=== PATIENT | female | born 1970 | race Caucasian/White ===

== ENCOUNTER 2020-03-26 21:39 | Inpatient (IN) ==
[2020-03-26] MEDS ORDERED: ACETAMINOPHEN 500 MG TABLET PO STA (22:13)
[2020-03-26] MEDS ORDERED: SODIUM CHLORIDE 0.9% 1,000 ML IV STA (22:13)
[2020-03-26 22:54] LABS: Basophils % 1.8 % (0.0-0.8); Hematocrit 36.3 VOL% (35.7-47.0); Hemoglobin 12.4 GM/DL (12.0-16.0); Immature Granulocytes % 1.8 %; Immature Granulocytes Absolute 0.02 #; Lymphocytes # 0.1 10*3/uL (1.4-4.0); Lymphocytes % 5.3 % (21.3-54.2); Mean Corpuscular HGB Conc 34.2 GM/DL (32-36); Mean Corpuscular Volume 82.5 FL (87-102); Mean Platelet Volume 9.3 FL (9.6-12.0); Monocytes % 51.3 % (1.7-12.7); Neutrophils % 39.8 % (38.7-73.9); Platelet Count 189 T/CUMM (130-400); Red Cell Distribution Width 12.2 % (9.3-17.3); White Blood Count 1.1 T/CUMM (4-12)
[2020-03-26 23:20] LABS: Bilirubin,Total 1.8 MG/DL (0.2-1.0); Osmolality,Calculated 263.5 MOS/KG (273-304); Potassium 2.7 MMOL/L (3.5-5.1); Total Protein 6.4 G/DL (6.4-8.3)
[2020-03-26] MEDS ORDERED: MEROPENEM 2,000 MG in SODIUM CHLORIDE 0.9% 100 ML IV SCH (23:45)
[2020-03-27] MEDS ORDERED: MEROPENEM 2,000 MG in SODIUM CHLORIDE 0.9% 100 ML IV STA
[2020-03-27] MEDS ORDERED: GLUCAGON 1 MG VIAL IM PRN (00:03)
[2020-03-27] MEDS ORDERED: DEXTROSE 50% 25 GM/50 ML VIAL IV PRN (00:03)
[2020-03-27] MEDS ORDERED: ALBUTEROL/IPRATROPIUM 3 ML NEB RESP TX PRN (00:03)
[2020-03-27] MEDS ORDERED: ACETAMINOPHEN 325 MG TABLET PO PRN (00:03)
[2020-03-27] MEDS ORDERED: PROMETHAZINE 25 MG/1 ML VIAL IV PRN (00:03)
[2020-03-27] MEDS ORDERED: ONDANSETRON 4 MG/2 ML VIAL IV PRN ×2 (00:03→02:35)
[2020-03-27] MEDS ORDERED: SIMETHICONE CHEW 125 MG TABLET PO PRN (00:03)
[2020-03-27 00:47] LABS: Amorphous Crystals,Urine Occasional /HPF (Few); Bacteria,Urine Many /HPF (Few); Bilirubin,Urine Negative (Negative); Blood, Urine Moderate mg/dL (Negative); Glucose,Urine (UA) Negative (Negative); Hyaline Casts,Urine 4 /LPF (0-3); Ketones,Urine 5 mg/dL (Negative); Mucus,Urine Occasional /LPF (Occasional); Nitrite,Urine Negative (Negative); Protein,Urine Negative; Squamous Epithelial Cell,Urine Occasional /HPF (0-10); Urine Appearance Slightly Hazy (Clear); Urine Color Yellow (Yellow); Urine Specific Gravity 1.005 (1.001-1.035); WBC,Urine 5 /HPF (0-6)
[2020-03-27 00:58] LABS: Band Neutrophils 4 % (0-10); Lymphocytes 6 % (20-55); Microcytosis 1+; Platelet Estimate Normal; Segmented Neutrophils 40 % (50-85); Total Cells Counted 100
[2020-03-27 00:59] LABS: Polychromasia Few
[2020-03-27] MEDS: SODIUM CHLOR 0.9% KCL 40 MEQ 40 MEQ/1,000 ML BAG IV SCH ×4 (01:00→23:10)
[2020-03-27] MEDS: ENOXAPARIN 40 MG/0.4 ML SYRINGE SUBCUT SCH ×2 (01:13→23:30)
[2020-03-27] MEDS ORDERED: PROMETHAZINE INJ 25 MG in SODIUM CHLORIDE 0.9% 50 ML IV PRN (02:06)
[2020-03-27] MEDS: ZALEPLON 5 MG CAPSULE PO PRN ×2 (02:40→20:43)
[2020-03-27] MEDS ORDERED: MAGNESIUM SULF RIDER 4 GM in PREMIX 1 EACH IV PRN (03:03)
[2020-03-27] MEDS ORDERED: MAGNESIUM SULF RIDER 2 GM in PREMIX 1 EACH IV PRN (03:03)
[2020-03-27 06:08] LABS: Basophils % 1.8 % (0.0-0.8); Hematocrit 32.8 VOL% (35.7-47.0); Immature Granulocytes % 5.3 %; Immature Granulocytes Absolute 0.06 #; Lymphocytes # 0.1 10*3/uL (1.4-4.0); Lymphocytes % 7.1 % (21.3-54.2); Mean Corpuscular HGB Conc 33.5 GM/DL (32-36); Mean Corpuscular Volume 83.9 FL (87-102); Monocytes % 44.2 % (1.7-12.7); Neutrophils % 41.6 % (38.7-73.9); Platelet Count 176 T/CUMM (130-400); Red Blood Count 3.91 MC/CUMM (3.8-5.5); Red Cell Distribution Width 12.4 % (9.3-17.3); White Blood Count 1.1 T/CUMM (4-12)
[2020-03-27 06:32] LABS: Albumin 1.7 G/DL (3.4-5.0); Bilirubin,Total 1.8 MG/DL (0.2-1.0); Calcium 7.5 MG/DL (8.5-10.1); Total Protein 5.7 G/DL (6.4-8.3)
[2020-03-27] MEDS ORDERED: MEROPENEM 2,000 MG in SODIUM CHLORIDE 0.9% 100 ML IV SCH (08:00)
[2020-03-27 08:53] LABS: Band Neutrophils 2 % (0-10); Eosinophils 13 % (0-10); Lymphocytes 9 % (20-55); Metamyelocytes 15 %; Myelocytes 2 %; Segmented Neutrophils 15 % (50-85)
[2020-03-27 08:54] LABS: Atypical Lymphocytes Few; Hypochromasia Slight; Platelet Estimate Normal; Total Cells Counted 100
[2020-03-27] MEDS ORDERED: PROMETHAZINE 25 MG SUPP RECTAL PRN (09:23)
[2020-03-27] MEDS: FILGRASTIM-SNDZ 480 MCG/0.8 ML SYRINGE SUBCUT SCH (10:48)
[2020-03-27] MEDS: MEROPENEM 500 MG in SODIUM CHLORIDE 0.9% 100 ML IV SCH ×3 (10:48→20:23)
[2020-03-27] MEDS: LOPERAMIDE 2 MG CAPSULE PO PRN ×2 (16:05→20:43)
[2020-03-28] MEDS: MEROPENEM 500 MG in SODIUM CHLORIDE 0.9% 100 ML IV SCH ×4 (03:13→21:14)
[2020-03-28 05:29] LABS: Basophils # 0.1 10*3/uL (0.0-0.2); Basophils % 1.5 % (0.0-0.8); Eosinophils % 0.2 % (0.00-10.9); Hematocrit 32.9 VOL% (35.7-47.0); Hemoglobin 10.5 GM/DL (12.0-16.0); Immature Granulocytes % 7.1 %; Immature Granulocytes Absolute 0.43 #; Lymphocytes # 0.2 10*3/uL (1.4-4.0); Lymphocytes % 3.5 % (21.3-54.2); Mean Corpuscular HGB Conc 31.9 GM/DL (32-36); Mean Corpuscular Volume 85.9 FL (87-102); Mean Platelet Volume 9.7 FL (9.6-12.0); Monocytes % 14.9 % (1.7-12.7); Neutrophils % 72.8 % (38.7-73.9); Platelet Count 277 T/CUMM (130-400); Red Blood Count 3.83 MC/CUMM (3.8-5.5); Red Cell Distribution Width 12.7 % (9.3-17.3)
[2020-03-28 05:57] LABS: Band Neutrophils 5 % (0-10); Hypochromasia 1+; Lymphocytes 3 % (20-55); Microcytosis 1+; Platelet Estimate Adequate; Segmented Neutrophils 78 % (50-85); Total Cells Counted 100
[2020-03-28 06:10] LABS: Calcium 7.6 MG/DL (8.5-10.1); Osmolality,Calculated 268.8 MOS/KG (273-304); Potassium 3.4 MMOL/L (3.5-5.1)
[2020-03-28 06:14] LABS: Albumin 1.7 G/DL (3.4-5.0); Bilirubin,Total 1.3 MG/DL (0.2-1.0); Calcium 7.1 MG/DL (8.5-10.1); Osmolality,Calculated 275.4 MOS/KG (273-304); Potassium 3.7 MMOL/L (3.5-5.1); Total Protein 4.7 G/DL (6.4-8.3)
[2020-03-28] MEDS: SODIUM CHLOR 0.9% KCL 40 MEQ 40 MEQ/1,000 ML BAG IV SCH ×2 (07:01→16:24)
[2020-03-28] MEDS: LOPERAMIDE 2 MG CAPSULE PO PRN (10:38)
[2020-03-28] MEDS: FILGRASTIM-SNDZ 480 MCG/0.8 ML SYRINGE SUBCUT SCH (10:38)
[2020-03-28] MEDS ORDERED: DIPHENOXYLATE/ATROPINE 2.5-0.025 MG TABLET PO PRN (17:55)
[2020-03-29] MEDS: ENOXAPARIN 40 MG/0.4 ML SYRINGE SUBCUT SCH (00:22)
[2020-03-29 04:14] LABS: Basophils # 0.1 10*3/uL (0.0-0.2); Basophils % 0.4 % (0.0-0.8); Hematocrit 33.6 VOL% (35.7-47.0); Hemoglobin 11.2 GM/DL (12.0-16.0); Immature Granulocytes % 20.7 %; Immature Granulocytes Absolute 5.56 #; Lymphocytes # 0.5 10*3/uL (1.4-4.0); Lymphocytes % 1.7 % (21.3-54.2); Mean Corpuscular HGB Conc 33.3 GM/DL (32-36); Mean Corpuscular Volume 84.4 FL (87-102); Mean Platelet Volume 9.5 FL (9.6-12.0); Monocytes % 7.2 % (1.7-12.7); NRBC # 0.03 10*3/uL; Platelet Count 353 T/CUMM (130-400); Red Blood Count 3.98 MC/CUMM (3.8-5.5); Red Cell Distribution Width 13.1 % (9.3-17.3); White Blood Count 26.9 T/CUMM (4-12)
[2020-03-29 04:47] LABS: Calcium 7.3 MG/DL (8.5-10.1); Osmolality,Calculated 273.5 MOS/KG (273-304)
[2020-03-29 04:48] LABS: Band Neutrophils 7 % (0-10); Lymphocytes 3 % (20-55); Myelocytes 1 %; Segmented Neutrophils 85 % (50-85); Total Cells Counted 100
[2020-03-29 04:49] LABS: Hypochromasia 1+; Microcytosis 1+; Platelet Estimate Adequate
[2020-03-29] MEDS: SODIUM CHLOR 0.9% KCL 40 MEQ 40 MEQ/1,000 ML BAG IV SCH ×2 (05:28→11:36)
[2020-03-29] MEDS: MEROPENEM 500 MG in SODIUM CHLORIDE 0.9% 100 ML IV SCH ×2 (05:29→11:39)
[2020-03-29 11:50] VITALS: BP 110/57
== END 2020-03-29 15:00 | disposition home or self-care (01) | DRG 809 ==
LOC: N.ED 21:39 → N.EDINP 23:57 → SUATTDRO 23:57 → N.EDINP 03-27 01:48 → N.3E 03-27 01:56 → N.4E 03-28 13:32
PROVIDERS: ADMIT Internal Medicine; ATTEND Internal Medicine

== ENCOUNTER 2020-04-14 10:40 | Inpatient (IN) ==
[2020-04-14] MEDS ORDERED: MEROPENEM 500 MG in SODIUM CHLORIDE 0.9% 100 ML IV STA (11:08)
[2020-04-14] MEDS ORDERED: SODIUM CHLORIDE 0.9% 1,000 ML IV STA (11:08)
[2020-04-14 11:32] LABS: Basophils % 4.5 % (0.0-0.8); Hematocrit 36.2 VOL% (35.7-47.0); Hemoglobin 12.1 GM/DL (12.0-16.0); Immature Granulocytes % 1.5 %; Immature Granulocytes Absolute 0.01 #; Lymphocytes # 0.1 10*3/uL (1.4-4.0); Lymphocytes % 15.2 % (21.3-54.2); Mean Corpuscular HGB Conc 33.4 GM/DL (32-36); Mean Corpuscular Volume 83.6 FL (87-102); Mean Platelet Volume 10.4 FL (9.6-12.0); Monocytes % 31.8 % (1.7-12.7); Platelet Count 107 T/CUMM (130-400); Red Blood Count 4.33 MC/CUMM (3.8-5.5); Red Cell Distribution Width 13.1 % (9.3-17.3)
[2020-04-14 11:36] LABS: White Blood Count 0.7 T/CUMM (4-12)
[2020-04-14 11:50] LABS: Alanine Aminotransferase 45 U/L (13-56); Albumin 2.3 G/DL (3.4-5.0); Alkaline Phosphatase 117 U/L (45-117); Aspartate Amino Transferase 41 U/L (0-37); Blood Urea Nitrogen 9 MG/DL (7-18); Calcium 8.1 MG/DL (8.5-10.1); Carbon Dioxide 25 MMOL/L (21-32); Estimated Glom Filtration Rate 131 ML/MIN; Glucose 126 MG/DL (74-106); Osmolality,Calculated 264.5 MOS/KG (273-304); Potassium 3.7 MMOL/L (3.5-5.1); Sodium 132 MMOL/L (136-145); Total Protein 6.3 G/DL (6.4-8.3)
[2020-04-14 11:51] LABS: Hypochromasia 1+; Lymphocytes 20 % (20-55); Microcytosis 1+; Platelet Estimate Decreased; Segmented Neutrophils 30 % (50-85); Total Cells Counted 100
[2020-04-14] MEDS ORDERED: DEXTROSE 50% 25 GM/50 ML VIAL IV PRN (13:45)
[2020-04-14] MEDS ORDERED: GLUCAGON 1 MG VIAL IM PRN (13:45)
[2020-04-14] MEDS ORDERED: ONDANSETRON 4 MG/2 ML VIAL IV PRN (13:45)
[2020-04-14] MEDS ORDERED: BUPIVACAINE MPF 0.25% 30 ML VIAL ONE (13:53)
[2020-04-14] MEDS ORDERED: LIDOCAINE 1%/EPI INJ 20 ML VIAL ONE (13:53)
[2020-04-14] MEDS ORDERED: fentaNYL 100 MCG/2 ML VIAL ONE (14:21)
[2020-04-14] MEDS ORDERED: MIDAZOLAM 2 MG/2 ML VIAL ONE (14:22)
[2020-04-14] MEDS ORDERED: ONDANSETRON 4 MG/2 ML VIAL ONE ×3 (14:23)
[2020-04-14] MEDS ORDERED: LIDOCAINE 2% 5 ML VIAL ONE (14:24)
[2020-04-14] MEDS ORDERED: propofoL 200 MG/20 ML VIAL IV ONE (14:25)
[2020-04-14] MEDS ORDERED: SUCCINYLCHOLINE 200 MG/10 ML VIAL ONE (14:25)
[2020-04-14] MEDS ORDERED: LACTATED RINGERS 1,000 ML IV ONE ×2 (14:30→15:11)
[2020-04-14] MEDS ORDERED: DEXAMETHASONE 4 MG/1 ML VIAL ONE ×2 (14:55)
[2020-04-14] MEDS ORDERED: CEFEPIME 1,000 MG in SODIUM CHLORIDE 0.9% 100 ML IV ONE (15:00)
[2020-04-14] MEDS ORDERED: VANCOMYCIN INJ 1,750 MG in SODIUM CHLORIDE 0.9% 500 ML IV ONE (15:00)
[2020-04-14] MEDS ORDERED: SEVOFLURANE 1 UNIT/15 MINUTE INH ONE (15:10)
[2020-04-14] MEDS ORDERED: MORPHINE 4 MG/1 ML VIAL IV PRN (16:51)
[2020-04-14] MEDS ORDERED: FILGRASTIM-SNDZ 300 MCG/0.5 ML SYRINGE SUBCUT SCH (17:08)
[2020-04-14] MEDS: SODIUM CHLORIDE 0.9% IV SCH (17:18)
[2020-04-14] MEDS: SODIUM CHLORIDE 0.45% 1,000 ML IV SCH (17:18)
[2020-04-14] MEDS: TOBRAMYCIN IV SCH (17:18)
[2020-04-14] MEDS: FILGRASTIM-SNDZ 300 MCG/0.5 ML SYRINGE SUBCUT SCH (17:19)
[2020-04-14] MEDS ORDERED: MEROPENEM 500 MG in SODIUM CHLORIDE 0.9% 100 ML IV SCH (18:00)
[2020-04-14] MEDS: ZALEPLON 5 MG CAPSULE PO PRN (21:06)
[2020-04-14] MEDS: CEFEPIME 1,000 MG in SODIUM CHLORIDE 0.9% 100 ML IV SCH (21:07)
[2020-04-15] MEDS: SODIUM CHLORIDE 0.45% 1,000 ML IV SCH ×5 (02:25→23:23)
[2020-04-15] MEDS: CEFEPIME 1,000 MG in SODIUM CHLORIDE 0.9% 100 ML IV SCH ×4 (02:26→21:18)
[2020-04-15 05:55] LABS: Basophils % 1.7 % (0.0-0.8); Hemoglobin 10.3 GM/DL (12.0-16.0); Immature Granulocytes % 3.5 %; Immature Granulocytes Absolute 0.04 #; Lymphocytes # 0.1 10*3/uL (1.4-4.0); Lymphocytes % 7.8 % (21.3-54.2); Mean Corpuscular HGB Conc 33.2 GM/DL (32-36); Mean Corpuscular Volume 83.8 FL (87-102); Mean Platelet Volume 10.9 FL (9.6-12.0); Monocytes % 31.3 % (1.7-12.7); Neutrophils % 55.7 % (38.7-73.9); Platelet Count 102 T/CUMM (130-400); Red Cell Distribution Width 13.2 % (9.3-17.3); White Blood Count 1.2 T/CUMM (4-12)
[2020-04-15 06:20] LABS: Band Neutrophils 4 % (0-10); Hypochromasia 1+; Lymphocytes 13 % (20-55); Platelet Estimate Decreased; Segmented Neutrophils 54 % (50-85); Total Cells Counted 100
[2020-04-15 06:21] LABS: Microcytosis 1+
[2020-04-15 06:23] LABS: Calcium 7.9 MG/DL (8.5-10.1); Potassium 3.7 MMOL/L (3.5-5.1)
[2020-04-15] MEDS ORDERED: PANTOPRAZOLE 40 MG TABLET PO SCH (09:00)
[2020-04-15] MEDS: OMEPRAZOLE ODT 20 MG TABLET PO SCH (09:00)
[2020-04-15] MEDS: FILGRASTIM-SNDZ 300 MCG/0.5 ML SYRINGE SUBCUT SCH (09:02)
[2020-04-15] MEDS: VANCOMYCIN INJ 1,750 MG in SODIUM CHLORIDE 0.9% 500 ML IV SCH (10:40)
[2020-04-15] MEDS ORDERED: predniSONE 20 MG TABLET PO ONE (10:42)
[2020-04-15] MEDS ORDERED: FILGRASTIM-SNDZ 300 MCG/0.5 ML SYRINGE SUBCUT SCH (16:53)
[2020-04-15] MEDS: SODIUM CHLORIDE 0.9% IV SCH (18:11)
[2020-04-15] MEDS: TOBRAMYCIN IV SCH (18:11)
[2020-04-15] MEDS: ZALEPLON 5 MG CAPSULE PO PRN (20:13)
[2020-04-16] MEDS: CEFEPIME 1,000 MG in SODIUM CHLORIDE 0.9% 100 ML IV SCH ×2 (03:01→08:17)
[2020-04-16] MEDS: VANCOMYCIN INJ 1,750 MG in SODIUM CHLORIDE 0.9% 500 ML IV SCH (03:42)
[2020-04-16 06:15] LABS: Hematocrit 27.4 VOL% (35.7-47.0); Immature Granulocytes % 2.5 %; Lymphocytes # 0.2 10*3/uL (1.4-4.0); Lymphocytes % 4.5 % (21.3-54.2); Mean Corpuscular HGB Conc 32.8 GM/DL (32-36); Mean Corpuscular Volume 85.6 FL (87-102); Mean Platelet Volume 10.5 FL (9.6-12.0); Monocytes % 17.9 % (1.7-12.7); Neutrophils % 74.1 % (38.7-73.9); Platelet Count 107 T/CUMM (130-400); Red Cell Distribution Width 13.2 % (9.3-17.3)
[2020-04-16 06:26] LABS: Calcium 7.7 MG/DL (8.5-10.1); Osmolality,Calculated 279.3 MOS/KG (273-304); Potassium 3.5 MMOL/L (3.5-5.1)
[2020-04-16 06:54] LABS: Band Neutrophils 2 % (0-10); Hypochromasia Slight; Lymphocytes 15 % (20-55); Metamyelocytes 1 %; Myelocytes 1 %; Platelet Estimate Adequate; Segmented Neutrophils 66 % (50-85); Total Cells Counted 100
[2020-04-16] MEDS: OMEPRAZOLE ODT 20 MG TABLET PO SCH (08:16)
[2020-04-16] MEDS: FILGRASTIM-SNDZ 300 MCG/0.5 ML SYRINGE SUBCUT SCH (08:18)
[2020-04-16] MEDS ORDERED: predniSONE 20 MG TABLET PO SCH (09:00)
[2020-04-16 12:01] VITALS: BP 104/78
== END 2020-04-16 11:45 | disposition home health service (06) | DRG 908 ==
LOC: N.ED 10:40 → SUATTDRO 13:45 → N.4E 13:45
PROVIDERS: ADMIT Internal Medicine Nephrology; ATTEND Internal Medicine

== ENCOUNTER 2020-04-20 20:28 | Observation (INO) ==
[2020-04-20] MEDS ORDERED: ONDANSETRON 4 MG/2 ML VIAL IV STA (21:14)
[2020-04-20] MEDS ORDERED: MORPHINE 4 MG/1 ML VIAL IV STA (21:14)
[2020-04-20] MEDS ORDERED: SODIUM CHLORIDE 0.9% 1,000 ML IV STA (21:14)
[2020-04-20 21:29] LABS: Basophils % 0.1 % (0.0-0.8); Hematocrit 36.1 VOL% (35.7-47.0); Hemoglobin 12.3 GM/DL (12.0-16.0); Immature Granulocytes % 27.7 %; Immature Granulocytes Absolute 3.71 #; Lymphocytes # 0.2 10*3/uL (1.4-4.0); Lymphocytes % 1.2 % (21.3-54.2); Mean Corpuscular HGB Conc 34.1 GM/DL (32-36); Mean Corpuscular Volume 83.6 FL (87-102); Monocytes % 8.5 % (1.7-12.7); NRBC # 0.05 10*3/uL; Neutrophils % 62.5 % (38.7-73.9); Platelet Count 164 T/CUMM (130-400); Red Blood Count 4.32 MC/CUMM (3.8-5.5); Red Cell Distribution Width 15.9 % (9.3-17.3); White Blood Count 13.4 T/CUMM (4-12)
[2020-04-20 21:42] LABS: Albumin 2.6 G/DL (3.4-5.0); Bilirubin,Total 0.7 MG/DL (0.2-1.0); Calcium 8.2 MG/DL (8.5-10.1); Osmolality,Calculated 276.4 MOS/KG (273-304); Potassium 2.9 MMOL/L (3.5-5.1); Total Protein 6.3 G/DL (6.4-8.3)
[2020-04-20] MEDS ORDERED: POTASSIUM CHLORIDE 20 MEQ/15 ML UDCUP PO ONE (21:50)
[2020-04-20 21:56] LABS: Bilirubin,Urine Negative (Negative); Blood, Urine Negative (Negative); Glucose,Urine (UA) Negative (Negative); Ketones,Urine Negative (Negative); Mucus,Urine Occasional /LPF (Occasional); Nitrite,Urine Negative (Negative); Protein,Urine Negative; RBC,Urine 1 /HPF (0-4); Squamous Epithelial Cell,Urine Occasional /HPF (0-10); Urine Appearance CLEAR (Clear); Urine Color Yellow (Yellow); Urine Specific Gravity 1.012 (1.001-1.035); Urine Urobilinogen < 2.0 EU/DL (0.2-1.0); WBC,Urine 8 /HPF (0-6)
[2020-04-20 22:14] LABS: Band Neutrophils 7 % (0-10); Lymphocytes 2 % (20-55); Metamyelocytes 9 %; Myelocytes 4 %; Segmented Neutrophils 72 % (50-85); Total Cells Counted 100
[2020-04-20 22:16] LABS: Hypochromasia 1+; Platelet Estimate Normal; Polychromasia Few
[2020-04-20] MEDS ORDERED: HYDROmorphone 2 MG/1 ML VIAL IV STA (23:06)
[2020-04-20] MEDS ORDERED: HYDROmorphone 2 MG/1 ML VIAL ONE (23:07)
[2020-04-20] MEDS ORDERED: DEXTROSE 50% 25 GM/50 ML VIAL IV PRN (23:42)
[2020-04-20] MEDS ORDERED: GLUCAGON 1 MG VIAL IM PRN (23:42)
[2020-04-20] MEDS ORDERED: SCOPOLAMINE 1.5 MG PATCH TRANSDERM PRN (23:50)
[2020-04-20] MEDS ORDERED: PROMETHAZINE 25 MG SUPP RECTAL PRN (23:50)
[2020-04-20] MEDS ORDERED: ACETAMINOPHEN 325 MG TABLET PO PRN (23:50)
[2020-04-20] MEDS ORDERED: DIPHENOXYLATE/ATROPINE 2.5-0.025 MG TABLET PO PRN (23:50)
[2020-04-21] MEDS ORDERED: MEROPENEM 500 MG in SODIUM CHLORIDE 0.9% 100 ML IV SCH
[2020-04-21] MEDS ORDERED: VANCOMYCIN INJ 2,000 MG in SODIUM CHLORIDE 0.9% 500 ML IV ONE (01:00)
[2020-04-21] MEDS: MEROPENEM 2,000 MG in SODIUM CHLORIDE 0.9% 100 ML IV SCH ×2 (02:22→11:30)
[2020-04-21] MEDS: MORPHINE 4 MG/1 ML VIAL IV PRN ×3 (06:20→21:01)
[2020-04-21 08:32] LABS: Basophils % 0.1 % (0.0-0.8); Hematocrit 34.4 VOL% (35.7-47.0); Hemoglobin 11.2 GM/DL (12.0-16.0); Immature Granulocytes Absolute 2.97 #; Lymphocytes # 0.1 10*3/uL (1.4-4.0); Lymphocytes % 1.1 % (21.3-54.2); Mean Corpuscular HGB Conc 32.6 GM/DL (32-36); Mean Corpuscular Volume 85.8 FL (87-102); Mean Platelet Volume 9.4 FL (9.6-12.0); Monocytes % 9.8 % (1.7-12.7); NRBC # 0.04 10*3/uL; Platelet Count 152 T/CUMM (130-400); Red Blood Count 4.01 MC/CUMM (3.8-5.5); Red Cell Distribution Width 16.2 % (9.3-17.3); White Blood Count 12.9 T/CUMM (4-12)
[2020-04-21 08:48] LABS: Calcium 8.1 MG/DL (8.5-10.1); Osmolality,Calculated 271.7 MOS/KG (273-304); Potassium 3.4 MMOL/L (3.5-5.1)
[2020-04-21 09:01] LABS: Band Neutrophils 5 % (0-10); Hypochromasia 1+; Lymphocytes 2 % (20-55); Microcytosis 1+; Nucleated Red Blood Cells 1 (0-5); Platelet Estimate Adequate; Segmented Neutrophils 83 % (50-85); Total Cells Counted 100
[2020-04-21] MEDS: ENOXAPARIN 40 MG/0.4 ML SYRINGE SUBCUT SCH (11:38)
[2020-04-21] MEDS: predniSONE 20 MG TABLET PO SCH (11:39)
[2020-04-21] MEDS ORDERED: FUROSEMIDE 20 MG/2 ML VIAL IV ONE (11:40)
[2020-04-21] MEDS: ONDANSETRON 4 MG/2 ML VIAL IV PRN ×3 (11:50→21:01)
[2020-04-21] MEDS: MEROPENEM 500 MG in SODIUM CHLORIDE 0.9% 100 ML IV SCH ×2 (12:10→17:38)
[2020-04-21] MEDS: VANCOMYCIN INJ 1,500 MG in SODIUM CHLORIDE 0.9% 500 ML IV SCH (15:21)
[2020-04-22] MEDS: MEROPENEM 500 MG in SODIUM CHLORIDE 0.9% 100 ML IV SCH ×2 (00:45→05:26)
[2020-04-22] MEDS: VANCOMYCIN INJ 1,500 MG in SODIUM CHLORIDE 0.9% 500 ML IV SCH (01:22)
[2020-04-22] MEDS: ONDANSETRON 4 MG/2 ML VIAL IV PRN ×2 (05:14→10:21)
[2020-04-22] MEDS: MORPHINE 4 MG/1 ML VIAL IV PRN ×2 (05:15→10:24)
[2020-04-22] MEDS: predniSONE 20 MG TABLET PO SCH (09:26)
[2020-04-22] MEDS: ENOXAPARIN 40 MG/0.4 ML SYRINGE SUBCUT SCH (09:28)
[2020-04-22] MEDS ORDERED: DOCUSATE SODIUM 100 MG CAPSULE PO PRN (09:40)
[2020-04-22 17:01] VITALS: BP 110/53
== END 2020-04-22 13:40 | disposition home or self-care (01) ==
LOC: N.EDINP 20:28 → N.ED 20:28 → N.4E 04-21 00:27
PROVIDERS: ADMIT Internal Medicine; ATTEND Internal Medicine

== ENCOUNTER 2020-04-26 16:40 | Inpatient (IN) ==
[2020-04-26] MEDS ORDERED: SODIUM CHLORIDE 0.9% 1,000 ML IV STA (17:20)
[2020-04-26 18:29] LABS: Basophils % 0.2 % (0.0-0.8); Hematocrit 38.7 VOL% (35.7-47.0); Hemoglobin 12.7 GM/DL (12.0-16.0); Immature Granulocytes % 2.1 %; Immature Granulocytes Absolute 0.27 #; Lymphocytes # 0.1 10*3/uL (1.4-4.0); Lymphocytes % 0.8 % (21.3-54.2); Mean Corpuscular HGB Conc 32.8 GM/DL (32-36); Mean Corpuscular Volume 85.8 FL (87-102); Mean Platelet Volume 11.3 FL (9.6-12.0); Monocytes % 3.4 % (1.7-12.7); NRBC # 0.02 10*3/uL; Neutrophils % 93.5 % (38.7-73.9); Platelet Count 135 T/CUMM (130-400); Red Blood Count 4.51 MC/CUMM (3.8-5.5); Red Cell Distribution Width 17.7 % (9.3-17.3); White Blood Count 13.1 T/CUMM (4-12)
[2020-04-26 18:30] LABS: Bacteria,Urine Occasional /HPF (Few); Bilirubin,Urine Negative (Negative); Blood, Urine Negative (Negative); Glucose,Urine (UA) Negative (Negative); Ketones,Urine 5 mg/dL (Negative); Nitrite,Urine Negative (Negative); Protein,Urine Negative; RBC,Urine 1 /HPF (0-4); Squamous Epithelial Cell,Urine Occasional /HPF (0-10); Urine Appearance CLEAR (Clear); Urine Color Straw (Yellow); Urine Specific Gravity 1.002 (1.001-1.035); Urine Urobilinogen < 2.0 EU/DL (0.2-1.0); WBC,Urine <1 /HPF (0-6)
[2020-04-26 18:47] LABS: Albumin 3.1 G/DL (3.4-5.0); Bilirubin,Total 1.6 MG/DL (0.2-1.0); Calcium 9.2 MG/DL (8.5-10.1); Osmolality,Calculated 269.1 MOS/KG (273-304); Potassium 4.4 MMOL/L (3.5-5.1); Total Protein 6.9 G/DL (6.4-8.3)
[2020-04-26 19:49] LABS: Band Neutrophils 1 % (0-10); Hypochromasia 1+; Nucleated Red Blood Cells 1 (0-5); Platelet Estimate Normal; Polychromasia 1+; Segmented Neutrophils 98 % (50-85); Total Cells Counted 100
[2020-04-26] MEDS ORDERED: BISACODYL 10 MG SUPP RECTAL STA (21:32)
[2020-04-26] MEDS: SODIUM CHLORIDE 0.9% 1,000 ML IV SCH (22:32)
[2020-04-27] MEDS: SODIUM CHLORIDE 0.9% 1,000 ML IV SCH ×2 (06:32→18:19)
[2020-04-27 08:40] LABS: Albumin 2.7 G/DL (3.4-5.0); Bilirubin,Total 1.1 MG/DL (0.2-1.0); Calcium 8.6 MG/DL (8.5-10.1); Osmolality,Calculated 271.8 MOS/KG (273-304); Potassium 3.7 MMOL/L (3.5-5.1)
[2020-04-27] MEDS ORDERED: ENOXAPARIN 40 MG/0.4 ML SYRINGE SUBCUT SCH (09:00)
[2020-04-27] MEDS ORDERED: PANTOPRAZOLE 40 MG VIAL IV SCH (09:00)
[2020-04-27] MEDS: HYDROmorphone 2 MG/1 ML VIAL IV PRN ×2 (09:14→19:25)
[2020-04-27] MEDS: LORazepam 2 MG/1 ML VIAL IV PRN ×3 (10:29→22:06)
[2020-04-27] MEDS ORDERED: LACTULOSE 20 GM/30 ML UDCUP PO PRN (13:03)
[2020-04-27] MEDS ORDERED: POLYVINYL ALCOHOL 1.4% OPH SOLN 15 ML BOTTLE LEFT EYE PRN (13:09)
[2020-04-27] MEDS ORDERED: predniSONE 20 MG TABLET PO SCH (15:30)
[2020-04-27] MEDS: methylPREDNISolone SOD SUC 125 MG/2 ML VIAL IV SCH (15:59)
[2020-04-27] MEDS: PROMETHAZINE INJ 12.5 MG in SODIUM CHLORIDE 0.9% 50 ML IV PRN (20:28)
[2020-04-27] MEDS: MINERAL OIL/PETROLATUM OPH OINT 3.5 GM TUBE LEFT EYE SCH (20:31)
[2020-04-28] MEDS: HYDROmorphone 2 MG/1 ML VIAL IV PRN ×4 (02:06→19:44)
[2020-04-28] MEDS: SODIUM CHLORIDE 0.9% 1,000 ML IV SCH ×4 (02:08→20:00)
[2020-04-28] MEDS: PANTOPRAZOLE 40 MG VIAL IV SCH ×3 (03:02→20:18)
[2020-04-28] MEDS: methylPREDNISolone SOD SUC 125 MG/2 ML VIAL IV SCH ×2 (03:02→15:27)
[2020-04-28] MEDS: PROMETHAZINE INJ 12.5 MG in SODIUM CHLORIDE 0.9% 50 ML IV PRN (05:26)
[2020-04-28] MEDS: LORazepam 2 MG/1 ML VIAL IV PRN (05:38)
[2020-04-28 05:54] LABS: Basophils % 0.1 % (0.0-0.8); Hematocrit 32.4 VOL% (35.7-47.0); Immature Granulocytes % 2.3 %; Immature Granulocytes Absolute 0.21 #; Lymphocytes # 0.1 10*3/uL (1.4-4.0); Mean Corpuscular Volume 87.8 FL (87-102); Mean Platelet Volume 9.7 FL (9.6-12.0); Monocytes % 6.8 % (1.7-12.7); Neutrophils % 89.8 % (38.7-73.9); Platelet Count 129 T/CUMM (130-400); Red Blood Count 3.69 MC/CUMM (3.8-5.5); Red Cell Distribution Width 17.3 % (9.3-17.3); White Blood Count 9.3 T/CUMM (4-12)
[2020-04-28 06:07] LABS: Hemoglobin 10.7 GM/DL (12.0-16.0)
[2020-04-28 06:10] LABS: Albumin 2.6 G/DL (3.4-5.0); Bilirubin,Total 1.4 MG/DL (0.2-1.0); Calcium 8.1 MG/DL (8.5-10.1); Osmolality,Calculated 275.5 MOS/KG (273-304); Potassium 4.2 MMOL/L (3.5-5.1); Total Protein 5.9 G/DL (6.4-8.9)
[2020-04-28 06:50] LABS: Anisocytosis 1+; Band Neutrophils 4 % (0-10); Lymphocytes 2 % (20-55); Platelet Estimate Adequate; Segmented Neutrophils 90 % (50-85); Tear Drop Cells Few; Total Cells Counted 100
[2020-04-28] MEDS ORDERED: DEXTROSE 50% 25 GM/50 ML VIAL IV PRN (09:08)
[2020-04-28] MEDS ORDERED: GLUCAGON 1 MG VIAL IM PRN (09:08)
[2020-04-28 09:49] LABS: INR 1.1; PT Patient Result 11.4 SECS (9.8-11.9)
[2020-04-28] MEDS: ONDANSETRON 4 MG/2 ML VIAL IV PRN (19:46)
[2020-04-28] MEDS: MINERAL OIL/PETROLATUM OPH OINT 3.5 GM TUBE LEFT EYE SCH (20:18)
[2020-04-28] MEDS ORDERED: ALBUTEROL/IPRATROPIUM 3 ML NEB RESP TX PRN (21:04)
[2020-04-28] MEDS ORDERED: ALBUTEROL/IPRATROPIUM 3 ML NEB RESP TX STA (21:04)
[2020-04-28] MEDS ORDERED: ZALEPLON 5 MG CAPSULE PO PRN (21:45)
[2020-04-29] MEDS: methylPREDNISolone SOD SUC 125 MG/2 ML VIAL IV SCH ×2 (02:59→16:07)
[2020-04-29] MEDS: HYDROmorphone 2 MG/1 ML VIAL IV PRN ×4 (03:00→22:05)
[2020-04-29] MEDS ORDERED: guaiFENesin/DM ER 600-30 MG TABLET PO PRN (03:16)
[2020-04-29] MEDS: ONDANSETRON 4 MG/2 ML VIAL IV PRN ×2 (04:28→12:17)
[2020-04-29] MEDS: SODIUM CHLORIDE 0.9% 1,000 ML IV SCH ×3 (04:31→19:20)
[2020-04-29] MEDS ORDERED: guaiFENesin 200 MG/10 ML UDCUP PO PRN (04:43)
[2020-04-29] MEDS ORDERED: LORazepam 2 MG/1 ML VIAL IV ONE (05:18)
[2020-04-29 05:59] LABS: Potassium 3.2 MMOL/L (3.5-5.1)
[2020-04-29] MEDS: PANTOPRAZOLE 40 MG VIAL IV SCH ×2 (09:03→21:09)
[2020-04-29] MEDS: LORazepam 2 MG/1 ML VIAL IV PRN ×2 (12:18→22:08)
[2020-04-29] MEDS: LEVALBUTEROL 1.25 MG/3 ML NEB RESP TX SCH ×2 (14:16→19:38)
[2020-04-29 15:00] LABS: Glucose,CSF 34 MG/DL (40-70)
[2020-04-29 15:02] LABS: Lymphocytes,CSF 96 %; Monocytes,CSF 4 %; White Blood Cell,CSF 565 C/CUMM
[2020-04-29 15:03] LABS: Appearance,CSF Clear; Red Blood Cell,CSF 55 C/CUMM
[2020-04-29] MEDS: DORNASE ALFA 2.5 MG/2.5 ML VIAL RESP TX SCH (19:38)
[2020-04-29] MEDS: MINERAL OIL/PETROLATUM OPH OINT 3.5 GM TUBE LEFT EYE SCH (21:11)
[2020-04-30] MEDS: HYDROmorphone 2 MG/1 ML VIAL IV PRN ×4 (02:30→20:31)
[2020-04-30] MEDS: methylPREDNISolone SOD SUC 125 MG/2 ML VIAL IV SCH ×2 (02:37→16:12)
[2020-04-30] MEDS: LEVALBUTEROL 1.25 MG/3 ML NEB RESP TX SCH ×3 (07:42→19:14)
[2020-04-30] MEDS: DORNASE ALFA 2.5 MG/2.5 ML VIAL RESP TX SCH ×2 (07:49→19:21)
[2020-04-30] MEDS: PANTOPRAZOLE 40 MG VIAL IV SCH ×2 (09:24→20:36)
[2020-04-30] MEDS: LORazepam 2 MG/1 ML VIAL IV PRN ×2 (09:24→16:13)
[2020-04-30] MEDS: SODIUM CHLORIDE 0.9% 1,000 ML IV SCH (14:03)
[2020-04-30] MEDS: MINERAL OIL/PETROLATUM OPH OINT 3.5 GM TUBE LEFT EYE SCH (20:35)
[2020-05-01] MEDS: HYDROmorphone 2 MG/1 ML VIAL IV PRN ×5 (00:17→18:10)
[2020-05-01] MEDS: LORazepam 2 MG/1 ML VIAL IV PRN ×3 (00:21→18:10)
[2020-05-01] MEDS: methylPREDNISolone SOD SUC 125 MG/2 ML VIAL IV SCH ×2 (04:05→17:25)
[2020-05-01] MEDS: LEVALBUTEROL 1.25 MG/3 ML NEB RESP TX SCH ×2 (07:17→23:30)
[2020-05-01] MEDS: DORNASE ALFA 2.5 MG/2.5 ML VIAL RESP TX SCH (07:17)
[2020-05-01] MEDS: PANTOPRAZOLE 40 MG VIAL IV SCH ×2 (08:51→20:27)
[2020-05-01] MEDS: SODIUM CHLORIDE 0.9% 1,000 ML IV SCH (09:02)
[2020-05-01 10:25] LABS: Hematocrit 31.2 VOL% (35.7-47.0); Hemoglobin 10.2 GM/DL (12.0-16.0); Immature Granulocytes % 0.7 %; Immature Granulocytes Absolute 0.03 #; Lymphocytes # 0.1 10*3/uL (1.4-4.0); Lymphocytes % 1.1 % (21.3-54.2); Mean Corpuscular HGB Conc 32.7 GM/DL (32-36); Mean Corpuscular Volume 88.1 FL (87-102); Mean Platelet Volume 9.4 FL (9.6-12.0); Monocytes % 9.4 % (1.7-12.7); Neutrophils % 88.8 % (38.7-73.9); Platelet Count 117 T/CUMM (130-400); Red Blood Count 3.54 MC/CUMM (3.8-5.5); Red Cell Distribution Width 18.4 % (9.3-17.3); White Blood Count 4.5 T/CUMM (4-12)
[2020-05-01 10:41] LABS: Albumin 2.1 G/DL (3.4-5.0); Bilirubin,Total 1.2 MG/DL (0.2-1.0); Calcium 7.8 MG/DL (8.5-10.1); Potassium 3.9 MMOL/L (3.5-5.1); Total Protein 5.3 G/DL (5.0-7.5)
[2020-05-01 10:48] LABS: Band Neutrophils 6 % (0-10); Hypochromasia 1+; Platelet Estimate Decreased; Segmented Neutrophils 89 % (50-85); Total Cells Counted 100
[2020-05-01 10:50] LABS: Microcytosis Slight
[2020-05-01] MEDS: MINERAL OIL/PETROLATUM OPH OINT 3.5 GM TUBE LEFT EYE SCH (20:26)
[2020-05-02] MEDS: HYDROmorphone 2 MG/1 ML VIAL IV PRN ×3 (01:10→20:21)
[2020-05-02] MEDS: methylPREDNISolone SOD SUC 125 MG/2 ML VIAL IV SCH ×2 (04:19→17:56)
[2020-05-02 05:00] LABS: Basophils % 0.6 % (0.0-0.8); Hematocrit 32.8 VOL% (35.7-47.0); Hemoglobin 10.7 GM/DL (12.0-16.0); Immature Granulocytes % 0.6 %; Immature Granulocytes Absolute 0.01 #; Lymphocytes # 0.1 10*3/uL (1.4-4.0); Lymphocytes % 3.5 % (21.3-54.2); Mean Corpuscular HGB Conc 32.6 GM/DL (32-36); Mean Corpuscular Volume 87.9 FL (87-102); Mean Platelet Volume 9.5 FL (9.6-12.0); Monocytes % 14.6 % (1.7-12.7); Neutrophils % 80.7 % (38.7-73.9); Platelet Count 111 T/CUMM (130-400); Red Blood Count 3.73 MC/CUMM (3.8-5.5); Red Cell Distribution Width 18.5 % (9.3-17.3); White Blood Count 1.7 T/CUMM (4-12)
[2020-05-02 05:20] LABS: Albumin 2.1 G/DL (3.4-5.0); Bilirubin,Total 1.7 MG/DL (0.2-1.0); Potassium 3.8 MMOL/L (3.5-5.1); Total Protein 5.5 G/DL (5.0-7.5)
[2020-05-02 05:33] LABS: Band Neutrophils 17 % (0-10); Hypochromasia Slight; Lymphocytes 9 % (20-55); Microcytosis Slight; Nucleated Red Blood Cells 1 (0-5); Platelet Estimate Decreased; Segmented Neutrophils 61 % (50-85); Total Cells Counted 100
[2020-05-02] MEDS ORDERED: PROMETHAZINE 25 MG/1 ML VIAL IM ONE (07:00)
[2020-05-02] MEDS: LEVALBUTEROL 1.25 MG/3 ML NEB RESP TX SCH ×3 (07:00→15:18)
[2020-05-02] MEDS ORDERED: MEPERIDINE 50 MG/1 ML VIAL IM ONE (07:00)
[2020-05-02] MEDS: DORNASE ALFA 2.5 MG/2.5 ML VIAL RESP TX SCH (07:10)
[2020-05-02] MEDS ORDERED: MIDAZOLAM 2 MG/2 ML VIAL IV ONE (07:30)
[2020-05-02] MEDS ORDERED: LIDOCAINE 1% 20 ML VIAL MISC INJ ONE (07:30)
[2020-05-02] MEDS ORDERED: LIDOCAINE 2% VISCOUS 100 ML BOTTLE SWISH/SPIT ONE (07:30)
[2020-05-02] MEDS ORDERED: LIDOCAINE 2% 20 ML VIAL RESP TX ONE (07:30)
[2020-05-02] MEDS ORDERED: METHOTREXATE INTRATHEC ONE (10:00)
[2020-05-02] MEDS ORDERED: METHOTREXATE 50 MG/2 ML VIAL INTRATHEC ONE (10:00)
[2020-05-02] MEDS: PANTOPRAZOLE 40 MG VIAL IV SCH ×2 (10:24→20:21)
[2020-05-02] MEDS: SODIUM CHLORIDE 0.9% 1,000 ML IV SCH (10:28)
[2020-05-02] MEDS ORDERED: DIAZEPAM 5 MG TABLET PO ONE (12:47)
[2020-05-02] MEDS: MINERAL OIL/PETROLATUM OPH OINT 3.5 GM TUBE LEFT EYE SCH (20:22)
[2020-05-03] MEDS: LEVALBUTEROL 1.25 MG/3 ML NEB RESP TX SCH ×3 (00:15→15:34)
[2020-05-03] MEDS: HYDROmorphone 2 MG/1 ML VIAL IV PRN ×4 (01:24→20:30)
[2020-05-03] MEDS: methylPREDNISolone SOD SUC 125 MG/2 ML VIAL IV SCH ×2 (03:52→15:28)
[2020-05-03 05:42] LABS: Hematocrit 32.6 VOL% (35.7-47.0); Hemoglobin 10.4 GM/DL (12.0-16.0); Immature Granulocytes % 0.4 %; Immature Granulocytes Absolute 0.01 #; Lymphocytes # 0.1 10*3/uL (1.4-4.0); Mean Corpuscular HGB Conc 31.9 GM/DL (32-36); Mean Corpuscular Volume 88.8 FL (87-102); Mean Platelet Volume 9.9 FL (9.6-12.0); Monocytes % 13.1 % (1.7-12.7); Neutrophils % 84.5 % (38.7-73.9); Platelet Count 108 T/CUMM (130-400); Red Blood Count 3.67 MC/CUMM (3.8-5.5); White Blood Count 2.5 T/CUMM (4-12)
[2020-05-03 06:03] LABS: Bilirubin,Total 1.6 MG/DL (0.2-1.0); Calcium 7.9 MG/DL (8.5-10.1); Osmolality,Calculated 279.4 MOS/KG (273-304); Potassium 4.1 MMOL/L (3.5-5.1); Total Protein 5.5 G/DL (5.0-7.5)
[2020-05-03 07:10] LABS: Band Neutrophils 2 % (0-10); Hypochromasia Slight; Lymphocytes 6 % (20-55); Microcytosis Slight; Platelet Estimate Decreased; Segmented Neutrophils 82 % (50-85); Total Cells Counted 100
[2020-05-03] MEDS: DORNASE ALFA 2.5 MG/2.5 ML VIAL RESP TX SCH (07:45)
[2020-05-03] MEDS: PANTOPRAZOLE 40 MG VIAL IV SCH ×2 (08:18→20:31)
[2020-05-03] MEDS: SODIUM CHLORIDE 0.9% 1,000 ML IV SCH (08:18)
[2020-05-03] MEDS ORDERED: DEXTROSE 50% 25 GM/50 ML VIAL IV PRN (08:35)
[2020-05-03] MEDS ORDERED: GLUCAGON 1 MG VIAL IM PRN (08:35)
[2020-05-03] MEDS: AMINO ACIDS/DEXT/LYTES 4.25-5% 2,000 ML IV SCH (10:00)
[2020-05-03] MEDS: LORazepam 2 MG/1 ML VIAL IV PRN (10:21)
[2020-05-03] MEDS: MINERAL OIL/PETROLATUM OPH OINT 3.5 GM TUBE LEFT EYE SCH (20:31)
[2020-05-04] MEDS: LEVALBUTEROL 1.25 MG/3 ML NEB RESP TX SCH ×4 (00:38→19:32)
[2020-05-04] MEDS: HYDROmorphone 2 MG/1 ML VIAL IV PRN ×5 (00:39→21:37)
[2020-05-04] MEDS: LORazepam 2 MG/1 ML VIAL IV PRN ×2 (04:07→15:50)
[2020-05-04] MEDS: methylPREDNISolone SOD SUC 125 MG/2 ML VIAL IV SCH ×2 (04:08→15:51)
[2020-05-04 06:12] LABS: Albumin 1.9 G/DL (3.4-5.0); Bilirubin,Total 1.7 MG/DL (0.2-1.0); Calcium 8.5 MG/DL (8.5-10.1); Potassium 4.1 MMOL/L (3.5-5.1); Total Protein 5.2 G/DL (5.0-7.5)
[2020-05-04] MEDS: AMINO ACIDS/DEXT/LYTES 4.25-5% 2,000 ML IV SCH ×3 (06:16→17:01)
[2020-05-04] MEDS: DORNASE ALFA 2.5 MG/2.5 ML VIAL RESP TX SCH (07:05)
[2020-05-04] MEDS: SODIUM CHLORIDE 0.9% 1,000 ML IV SCH ×2 (08:15→23:36)
[2020-05-04] MEDS: PANTOPRAZOLE 40 MG VIAL IV SCH ×2 (08:18→21:21)
[2020-05-04] MEDS: cefTRIAXone 2,000 MG in SYRINGE 1 EACH IV SCH (11:24)
[2020-05-04] MEDS: BISACODYL 10 MG SUPP RECTAL PRN (15:52)
[2020-05-04] MEDS: MINERAL OIL/PETROLATUM OPH OINT 3.5 GM TUBE LEFT EYE SCH (21:24)
[2020-05-05] MEDS: LORazepam 2 MG/1 ML VIAL IV PRN ×3 (02:25→21:22)
[2020-05-05] MEDS: methylPREDNISolone SOD SUC 125 MG/2 ML VIAL IV SCH ×2 (03:47→16:49)
[2020-05-05] MEDS: HYDROmorphone 2 MG/1 ML VIAL IV PRN ×4 (05:04→22:37)
[2020-05-05] MEDS ORDERED: HEPARIN LOCK FLUSH 500 UNIT/5 ML SYRINGE IV ONE (05:46)
[2020-05-05 06:27] LABS: Hematocrit 33.2 VOL% (35.7-47.0); Hemoglobin 11.1 GM/DL (12.0-16.0); Immature Granulocytes % 0.7 %; Immature Granulocytes Absolute 0.04 #; Lymphocytes # 0.1 10*3/uL (1.4-4.0); Lymphocytes % 0.8 % (21.3-54.2); Mean Corpuscular HGB Conc 33.4 GM/DL (32-36); Mean Corpuscular Volume 84.9 FL (87-102); Mean Platelet Volume 9.8 FL (9.6-12.0); Monocytes % 1.8 % (1.7-12.7); Neutrophils % 96.7 % (38.7-73.9); Platelet Count 105 T/CUMM (130-400); Red Blood Count 3.91 MC/CUMM (3.8-5.5); Red Cell Distribution Width 17.1 % (9.3-17.3)
[2020-05-05 06:45] LABS: Hypochromasia 1+; Microcytosis 1+; Platelet Estimate Decreased; Segmented Neutrophils 98 % (50-85); Total Cells Counted 100
[2020-05-05 06:57] LABS: Calcium 8.1 MG/DL (8.5-10.1); Osmolality,Calculated 273.2 MOS/KG (273-304); Potassium 5.1 MMOL/L (3.5-5.1)
[2020-05-05] MEDS: LEVALBUTEROL 1.25 MG/3 ML NEB RESP TX SCH ×3 (08:02→19:46)
[2020-05-05] MEDS: DORNASE ALFA 2.5 MG/2.5 ML VIAL RESP TX SCH (08:07)
[2020-05-05] MEDS ORDERED: METHOTREXATE 50 MG/2 ML VIAL INTRATHEC ONE (08:33)
[2020-05-05] MEDS: PANTOPRAZOLE 40 MG VIAL IV SCH ×2 (10:02→20:42)
[2020-05-05] MEDS: cefTRIAXone 2,000 MG in SYRINGE 1 EACH IV SCH (10:03)
[2020-05-05] MEDS: AMINO ACIDS/DEXT/LYTES 4.25-5% 2,000 ML IV SCH (14:04)
[2020-05-05] MEDS: SODIUM CHLORIDE 0.9% 1,000 ML IV SCH (20:40)
[2020-05-05] MEDS: MINERAL OIL/PETROLATUM OPH OINT 3.5 GM TUBE LEFT EYE SCH (20:45)
[2020-05-06] MEDS: methylPREDNISolone SOD SUC 125 MG/2 ML VIAL IV SCH ×2 (03:42→15:15)
[2020-05-06] MEDS: HYDROmorphone 2 MG/1 ML VIAL IV PRN ×3 (04:42→18:54)
[2020-05-06 07:14] LABS: Basophils % 0.2 % (0.0-0.8); Hematocrit 33.7 VOL% (35.7-47.0); Hemoglobin 11.7 GM/DL (12.0-16.0); Immature Granulocytes % 0.8 %; Immature Granulocytes Absolute 0.05 #; Lymphocytes # 0.1 10*3/uL (1.4-4.0); Lymphocytes % 0.8 % (21.3-54.2); Mean Corpuscular HGB Conc 34.7 GM/DL (32-36); Mean Platelet Volume 9.9 FL (9.6-12.0); Monocytes % 2.3 % (1.7-12.7); Neutrophils % 95.9 % (38.7-73.9); Platelet Count 111 T/CUMM (130-400); Red Blood Count 4.06 MC/CUMM (3.8-5.5); Red Cell Distribution Width 16.2 % (9.3-17.3); White Blood Count 6.5 T/CUMM (4-12)
[2020-05-06] MEDS: LEVALBUTEROL 1.25 MG/3 ML NEB RESP TX SCH ×3 (07:41→23:32)
[2020-05-06 07:44] LABS: Calcium 8.4 MG/DL (8.5-10.1); Osmolality,Calculated 269.5 MOS/KG (273-304); Potassium 5.1 MMOL/L (3.5-5.1)
[2020-05-06] MEDS: DORNASE ALFA 2.5 MG/2.5 ML VIAL RESP TX SCH (07:51)
[2020-05-06 08:33] LABS: Anisocytosis 1+; Hypochromasia 2+; Lymphocytes 2 % (20-55); Macrocytosis 1+; Platelet Estimate Decreased; Segmented Neutrophils 97 % (50-85); Total Cells Counted 100
[2020-05-06] MEDS: cefTRIAXone 2,000 MG in SYRINGE 1 EACH IV SCH (09:33)
[2020-05-06] MEDS: PANTOPRAZOLE 40 MG VIAL IV SCH ×2 (09:41→23:42)
[2020-05-06] MEDS: AMINO ACIDS/DEXT/LYTES 4.25-5% 2,000 ML IV SCH (11:30)
[2020-05-06] MEDS: ONDANSETRON 4 MG/2 ML VIAL IV PRN (16:55)
[2020-05-06] MEDS ORDERED: MULTIVITAMIN INJ 10 ML in AMINO ACIDS/DEXT/LYTES 5-15% 2,000 ML IV SCH (17:00)
[2020-05-06] MEDS ORDERED: DEXTROSE 10% 1,000 ML IV PRN (17:00)
[2020-05-06] MEDS: FAT EMULSION 20% 250 ML IV SCH (17:41)
[2020-05-06] MEDS: SODIUM CHLORIDE 0.9% 1,000 ML IV SCH (17:45)
[2020-05-06] MEDS: MINERAL OIL/PETROLATUM OPH OINT 3.5 GM TUBE LEFT EYE SCH (22:56)
[2020-05-07] MEDS: HYDROmorphone 2 MG/1 ML VIAL IV PRN ×6 (00:06→21:28)
[2020-05-07] MEDS: methylPREDNISolone SOD SUC 125 MG/2 ML VIAL IV SCH ×2 (03:21→17:37)
[2020-05-07 03:57] LABS: Basophils % 0.2 % (0.0-0.8); Eosinophils % 0.2 % (0.00-10.9); Hematocrit 35.1 VOL% (35.7-47.0); Hemoglobin 12.3 GM/DL (12.0-16.0); Immature Granulocytes % 1.5 %; Immature Granulocytes Absolute 0.07 #; Lymphocytes # 0.1 10*3/uL (1.4-4.0); Lymphocytes % 1.7 % (21.3-54.2); Mean Platelet Volume 9.6 FL (9.6-12.0); Monocytes % 2.5 % (1.7-12.7); Neutrophils % 93.9 % (38.7-73.9); Platelet Count 107 T/CUMM (130-400); Red Blood Count 4.28 MC/CUMM (3.8-5.5); Red Cell Distribution Width 15.9 % (9.3-17.3); White Blood Count 4.7 T/CUMM (4-12)
[2020-05-07 04:22] LABS: Calcium 8.6 MG/DL (8.5-10.1); Osmolality,Calculated 269.5 MOS/KG (273-304); Potassium 4.6 MMOL/L (3.5-5.1)
[2020-05-07 07:18] LABS: Anisocytosis 1+; Band Neutrophils 1 % (0-10); Lymphocytes 3 % (20-55); Platelet Estimate Adequate; Segmented Neutrophils 95 % (50-85); Total Cells Counted 100
[2020-05-07] MEDS: LEVALBUTEROL 1.25 MG/3 ML NEB RESP TX SCH ×2 (07:28→15:00)
[2020-05-07] MEDS: DORNASE ALFA 2.5 MG/2.5 ML VIAL RESP TX SCH (07:38)
[2020-05-07] MEDS: PANTOPRAZOLE 40 MG VIAL IV SCH ×2 (09:07→21:29)
[2020-05-07] MEDS: cefTRIAXone 2,000 MG in SYRINGE 1 EACH IV SCH (10:18)
[2020-05-07] MEDS: LORazepam 2 MG/1 ML VIAL IV PRN (13:34)
[2020-05-07] MEDS: MULTIVITAMIN INJ 10 ML in AMINO ACIDS/DEXT/LYTES 5-15% 2,000 ML IV SCH (17:00)
[2020-05-07] MEDS: FAT EMULSION 20% 250 ML IV SCH (17:00)
[2020-05-07] MEDS: SODIUM CHLORIDE 0.9% 1,000 ML IV SCH (18:16)
[2020-05-07] MEDS: MINERAL OIL/PETROLATUM OPH OINT 3.5 GM TUBE LEFT EYE SCH (21:29)
[2020-05-08] MEDS: LEVALBUTEROL 1.25 MG/3 ML NEB RESP TX SCH ×3 (00:01→14:00)
[2020-05-08] MEDS: methylPREDNISolone SOD SUC 125 MG/2 ML VIAL IV SCH ×2 (03:50→16:26)
[2020-05-08] MEDS: HYDROmorphone 2 MG/1 ML VIAL IV PRN ×3 (03:50→20:39)
[2020-05-08 05:26] LABS: Hematocrit 35.4 VOL% (35.7-47.0); Hemoglobin 12.6 GM/DL (12.0-16.0); Immature Granulocytes % 3.2 %; Lymphocytes # 0.1 10*3/uL (1.4-4.0); Lymphocytes % 2.9 % (21.3-54.2); Mean Corpuscular HGB Conc 35.6 GM/DL (32-36); Mean Corpuscular Volume 82.9 FL (87-102); Mean Platelet Volume 11.1 FL (9.6-12.0); Monocytes % 1.9 % (1.7-12.7); Platelet Count 103 T/CUMM (130-400); Red Blood Count 4.27 MC/CUMM (3.8-5.5); Red Cell Distribution Width 15.6 % (9.3-17.3); White Blood Count 3.1 T/CUMM (4-12)
[2020-05-08 05:44] LABS: Albumin 2.6 G/DL (3.4-5.0); Bilirubin,Total 1.4 MG/DL (0.2-1.0); Calcium 8.3 MG/DL (8.5-10.1); Osmolality,Calculated 274.2 MOS/KG (273-304); Potassium 4.4 MMOL/L (3.5-5.1); Total Protein 5.9 G/DL (5.0-7.5)
[2020-05-08] MEDS: LORazepam 2 MG/1 ML VIAL IV PRN ×2 (05:56→13:07)
[2020-05-08] MEDS: DORNASE ALFA 2.5 MG/2.5 ML VIAL RESP TX SCH (07:06)
[2020-05-08 07:18] LABS: Anisocytosis 1+; Band Neutrophils 4 % (0-10); Lymphocytes 1 % (20-55); Nucleated Red Blood Cells 1 (0-5); Platelet Estimate Adequate; Segmented Neutrophils 94 % (50-85); Smudge Cells Few; Total Cells Counted 100
[2020-05-08] MEDS: PANTOPRAZOLE 40 MG VIAL IV SCH ×2 (09:34→20:44)
[2020-05-08] MEDS: cefTRIAXone 2,000 MG in SYRINGE 1 EACH IV SCH (09:41)
[2020-05-08] MEDS ORDERED: DEXAMETHASONE INJ 40 MG in SODIUM CHLORIDE 0.9% 50 ML IV ONE (13:00)
[2020-05-08] MEDS: MULTIVITAMIN INJ 10 ML in AMINO ACIDS/DEXT/LYTES 5-15% 2,000 ML IV SCH (17:42)
[2020-05-08] MEDS: FAT EMULSION 20% 250 ML IV SCH (17:49)
[2020-05-08] MEDS: SODIUM CHLORIDE 0.9% 1,000 ML IV SCH (17:50)
[2020-05-08] MEDS: MINERAL OIL/PETROLATUM OPH OINT 3.5 GM TUBE LEFT EYE SCH (20:45)
[2020-05-09] MEDS: LEVALBUTEROL 1.25 MG/3 ML NEB RESP TX SCH ×4 (00:55→23:15)
[2020-05-09] MEDS: HYDROmorphone 2 MG/1 ML VIAL IV PRN ×4 (01:00→21:40)
[2020-05-09] MEDS: methylPREDNISolone SOD SUC 125 MG/2 ML VIAL IV SCH (03:48)
[2020-05-09 04:10] LABS: Basophils % 0.2 % (0.0-0.8); Hematocrit 32.9 VOL% (35.7-47.0); Hemoglobin 11.5 GM/DL (12.0-16.0); Immature Granulocytes % 6.2 %; Immature Granulocytes Absolute 0.35 #; Lymphocytes % 0.5 % (21.3-54.2); Mean Platelet Volume 10.3 FL (9.6-12.0); Monocytes % 1.6 % (1.7-12.7); NRBC # 0.05 10*3/uL; Neutrophils % 91.5 % (38.7-73.9); Platelet Count 102 T/CUMM (130-400); Red Blood Count 4.01 MC/CUMM (3.8-5.5); Red Cell Distribution Width 15.2 % (9.3-17.3); White Blood Count 5.7 T/CUMM (4-12)
[2020-05-09 04:32] LABS: Hypochromasia 1+; Lymphocytes 2 % (20-55); Nucleated Red Blood Cells 2 (0-5); Platelet Estimate Decreased; Segmented Neutrophils 98 % (50-85); Total Cells Counted 100
[2020-05-09 04:33] LABS: Microcytosis 1+
[2020-05-09 04:43] LABS: Calcium 8.5 MG/DL (8.5-10.1); Osmolality,Calculated 268.8 MOS/KG (273-304); Potassium 4.6 MMOL/L (3.5-5.1)
[2020-05-09] MEDS: DORNASE ALFA 2.5 MG/2.5 ML VIAL RESP TX SCH (07:27)
[2020-05-09] MEDS: SODIUM CHLORIDE 0.9% 1,000 ML IV SCH ×2 (08:21→23:22)
[2020-05-09] MEDS ORDERED: METHOTREXATE 50 MG/2 ML VIAL INTRATHEC ONE (08:39)
[2020-05-09] MEDS ORDERED: DEXAMETHASONE INJ 40 MG in SODIUM CHLORIDE 0.9% 50 ML IV ONE (09:00)
[2020-05-09] MEDS: PANTOPRAZOLE 40 MG VIAL IV SCH ×2 (09:13→20:24)
[2020-05-09] MEDS: FLUCONAZOLE INJ 100 MG in IV BAG 1 EACH IV SCH (09:35)
[2020-05-09] MEDS: cefTRIAXone 2,000 MG in SYRINGE 1 EACH IV SCH (09:55)
[2020-05-09] MEDS: LORazepam 2 MG/1 ML VIAL IV PRN (13:04)
[2020-05-09] MEDS: MULTIVITAMIN INJ 10 ML in AMINO ACIDS/DEXT/LYTES 5-15% 2,000 ML IV SCH (16:51)
[2020-05-09] MEDS: FAT EMULSION 20% 250 ML IV SCH (16:56)
[2020-05-09] MEDS: MENTHOL/ZINC OXIDE OINT 71 GM JAR TOP SCH (20:27)
[2020-05-09] MEDS: MINERAL OIL/PETROLATUM OPH OINT 3.5 GM TUBE LEFT EYE SCH (20:28)
[2020-05-10] MEDS: HYDROmorphone 2 MG/1 ML VIAL IV PRN ×4 (02:53→17:53)
[2020-05-10 06:26] LABS: Basophils % 0.2 % (0.0-0.8); Hematocrit 30.8 VOL% (35.7-47.0); Immature Granulocytes % 4.1 %; Immature Granulocytes Absolute 0.26 #; Lymphocytes % 0.5 % (21.3-54.2); Mean Corpuscular HGB Conc 35.7 GM/DL (32-36); Mean Corpuscular Volume 80.4 FL (87-102); Mean Platelet Volume 10.8 FL (9.6-12.0); Monocytes % 3.7 % (1.7-12.7); NRBC # 0.06 10*3/uL; Neutrophils % 91.5 % (38.7-73.9); Platelet Count 72 T/CUMM (130-400); Red Blood Count 3.83 MC/CUMM (3.8-5.5); Red Cell Distribution Width 15.3 % (9.3-17.3); White Blood Count 6.3 T/CUMM (4-12)
[2020-05-10 06:52] LABS: Albumin 2.6 G/DL (3.4-5.0); Bilirubin,Total 1.5 MG/DL (0.2-1.0); Calcium 8.4 MG/DL (8.5-10.1); Hypochromasia 1+; Lymphocytes 2 % (20-55); Microcytosis 1+; Nucleated Red Blood Cells 1 (0-5); Osmolality,Calculated 272.4 MOS/KG (273-304); Platelet Estimate Decreased; Potassium 4.2 MMOL/L (3.5-5.1); Segmented Neutrophils 97 % (50-85); Total Cells Counted 100; Total Protein 5.6 G/DL (5.0-7.5)
[2020-05-10] MEDS: LEVALBUTEROL 1.25 MG/3 ML NEB RESP TX SCH ×3 (07:45→22:15)
[2020-05-10] MEDS: DORNASE ALFA 2.5 MG/2.5 ML VIAL RESP TX SCH (07:50)
[2020-05-10] MEDS ORDERED: SUCRALFATE 1 GM/10 ML UDCUP PO PRN (08:15)
[2020-05-10] MEDS: PANTOPRAZOLE 40 MG VIAL IV SCH ×2 (08:34→21:12)
[2020-05-10] MEDS ORDERED: DEXAMETHASONE INJ 40 MG in SODIUM CHLORIDE 0.9% 50 ML IV ONE (09:00)
[2020-05-10] MEDS: cefTRIAXone 2,000 MG in SYRINGE 1 EACH IV SCH (11:04)
[2020-05-10] MEDS: FLUCONAZOLE INJ 100 MG in IV BAG 1 EACH IV SCH (11:54)
[2020-05-10] MEDS: ONDANSETRON 4 MG/2 ML VIAL IV PRN ×2 (13:29→20:16)
[2020-05-10] MEDS: FAT EMULSION 20% 250 ML IV SCH (17:00)
[2020-05-10] MEDS: MULTIVITAMIN INJ 10 ML in AMINO ACIDS/DEXT/LYTES 5-15% 2,000 ML IV SCH (17:30)
[2020-05-10] MEDS: MENTHOL/ZINC OXIDE OINT 71 GM JAR TOP SCH ×2 (21:11→21:15)
[2020-05-10] MEDS: MINERAL OIL/PETROLATUM OPH OINT 3.5 GM TUBE LEFT EYE SCH (21:15)
[2020-05-10] MEDS: SODIUM CHLORIDE 0.9% 1,000 ML IV SCH (21:37)
[2020-05-10] MEDS: LORazepam 2 MG/1 ML VIAL IV PRN (21:38)
[2020-05-11] MEDS: HYDROmorphone 2 MG/1 ML VIAL IV PRN ×4 (03:44→21:22)
[2020-05-11 05:58] LABS: Hematocrit 30.4 VOL% (35.7-47.0); Hemoglobin 10.5 GM/DL (12.0-16.0); Immature Granulocytes % 1.9 %; Immature Granulocytes Absolute 0.06 #; Lymphocytes % 1.3 % (21.3-54.2); Mean Corpuscular HGB Conc 34.5 GM/DL (32-36); Mean Corpuscular Volume 82.8 FL (87-102); Mean Platelet Volume 10.1 FL (9.6-12.0); Monocytes % 3.2 % (1.7-12.7); NRBC # 0.02 10*3/uL; Neutrophils % 93.6 % (38.7-73.9); Platelet Count 63 T/CUMM (130-400); Red Blood Count 3.67 MC/CUMM (3.8-5.5); Red Cell Distribution Width 16.4 % (9.3-17.3); White Blood Count 3.2 T/CUMM (4-12)
[2020-05-11 06:20] LABS: Lymphocytes 1 % (20-55); Segmented Neutrophils 98 % (50-85); Total Cells Counted 100
[2020-05-11 06:21] LABS: Anisocytosis 1+; Hypochromasia 1+; Microcytosis 1+
[2020-05-11 06:22] LABS: Hypersegmented Neutrophil SLIGHT; Platelet Estimate Decreased
[2020-05-11 06:32] LABS: Calcium 8.5 MG/DL (8.5-10.1); Osmolality,Calculated 270.7 MOS/KG (273-304); Potassium 4.6 MMOL/L (3.5-5.1)
[2020-05-11] MEDS: LEVALBUTEROL 1.25 MG/3 ML NEB RESP TX SCH ×3 (07:07→23:18)
[2020-05-11] MEDS: DORNASE ALFA 2.5 MG/2.5 ML VIAL RESP TX SCH (07:15)
[2020-05-11] MEDS ORDERED: DEXAMETHASONE INJ 20 MG in SODIUM CHLORIDE 0.9% 50 ML IV ONE (08:34)
[2020-05-11] MEDS: PANTOPRAZOLE 40 MG VIAL IV SCH ×2 (09:49→21:22)
[2020-05-11] MEDS: FLUCONAZOLE INJ 100 MG in IV BAG 1 EACH IV SCH (09:52)
[2020-05-11] MEDS: cefTRIAXone 2,000 MG in SYRINGE 1 EACH IV SCH (10:51)
[2020-05-11] MEDS: MENTHOL/ZINC OXIDE OINT 71 GM JAR TOP SCH ×2 (11:14→21:24)
[2020-05-11] MEDS: MINERAL OIL/PETROLATUM OPH OINT 3.5 GM TUBE LEFT EYE SCH (21:24)
[2020-05-12] MEDS: HYDROmorphone 2 MG/1 ML VIAL IV PRN ×5 (01:10→21:51)
[2020-05-12] MEDS: SODIUM CHLORIDE 0.9% 1,000 ML IV SCH ×2 (01:15→12:27)
[2020-05-12 06:13] LABS: Hematocrit 29.5 VOL% (35.7-47.0); Hemoglobin 10.2 GM/DL (12.0-16.0); Immature Granulocytes % 1.4 %; Immature Granulocytes Absolute 0.05 #; Lymphocytes # 0.1 10*3/uL (1.4-4.0); Lymphocytes % 2.2 % (21.3-54.2); Mean Corpuscular HGB Conc 34.6 GM/DL (32-36); Mean Corpuscular Volume 83.6 FL (87-102); Mean Platelet Volume 11.8 FL (9.6-12.0); Monocytes % 2.5 % (1.7-12.7); Neutrophils % 93.9 % (38.7-73.9); Platelet Count 44 T/CUMM (130-400); Red Blood Count 3.53 MC/CUMM (3.8-5.5); Red Cell Distribution Width 17.2 % (9.3-17.3); White Blood Count 3.7 T/CUMM (4-12)
[2020-05-12 06:35] LABS: Albumin 2.6 G/DL (3.4-5.0); Bilirubin,Total 1.8 MG/DL (0.2-1.0); Calcium 8.6 MG/DL (8.5-10.1); Osmolality,Calculated 268.4 MOS/KG (273-304); Potassium 4.4 MMOL/L (3.5-5.1); Total Protein 5.4 G/DL (5.0-7.5)
[2020-05-12 06:36] LABS: Anisocytosis 1+; Hypochromasia 1+; Lymphocytes 1 % (20-55); Microcytosis 1+; Platelet Estimate Decreased; Segmented Neutrophils 97 % (50-85); Total Cells Counted 100
[2020-05-12] MEDS: LEVALBUTEROL 1.25 MG/3 ML NEB RESP TX SCH ×2 (07:40→15:03)
[2020-05-12] MEDS: DORNASE ALFA 2.5 MG/2.5 ML VIAL RESP TX SCH (07:40)
[2020-05-12] MEDS: PANTOPRAZOLE 40 MG VIAL IV SCH ×2 (08:35→21:51)
[2020-05-12] MEDS ORDERED: SODIUM CHLORIDE 0.9% 1,000 ML IV PRN (08:35)
[2020-05-12] MEDS: FLUCONAZOLE INJ 100 MG in IV BAG 1 EACH IV SCH (08:41)
[2020-05-12] MEDS: ONDANSETRON 4 MG/2 ML VIAL IV PRN (09:43)
[2020-05-12] MEDS: MENTHOL/ZINC OXIDE OINT 71 GM JAR TOP SCH ×2 (09:44→21:52)
[2020-05-12] MEDS ORDERED: DEXAMETHASONE 10 MG/1 ML VIAL IV ONE (10:55)
[2020-05-12] MEDS: MINERAL OIL/PETROLATUM OPH OINT 3.5 GM TUBE LEFT EYE SCH (21:52)
[2020-05-13] MEDS: LEVALBUTEROL 1.25 MG/3 ML NEB RESP TX SCH ×4 (00:05→23:27)
[2020-05-13] MEDS: LORazepam 2 MG/1 ML VIAL IV PRN (00:34)
[2020-05-13] MEDS: HYDROmorphone 2 MG/1 ML VIAL IV PRN ×4 (04:26→20:24)
[2020-05-13] MEDS: MENTHOL/ZINC OXIDE OINT 71 GM JAR TOP SCH ×2 (08:00→20:28)
[2020-05-13] MEDS: DORNASE ALFA 2.5 MG/2.5 ML VIAL RESP TX SCH (08:05)
[2020-05-13] MEDS: SODIUM CHLORIDE 0.9% 1,000 ML IV SCH (08:10)
[2020-05-13] MEDS ORDERED: METHOTREXATE INTRATHEC ONE (09:00)
[2020-05-13 09:24] LABS: Hematocrit 30.3 VOL% (35.7-47.0); Hemoglobin 10.4 GM/DL (12.0-16.0); Immature Granulocytes % 0.4 %; Immature Granulocytes Absolute 0.02 #; Lymphocytes # 0.1 10*3/uL (1.4-4.0); Mean Corpuscular HGB Conc 34.3 GM/DL (32-36); Mean Corpuscular Volume 83.7 FL (87-102); Mean Platelet Volume 12.3 FL (9.6-12.0); Monocytes % 2.7 % (1.7-12.7); NRBC # 0.02 10*3/uL; Neutrophils % 95.9 % (38.7-73.9); Platelet Count 43 T/CUMM (130-400); Red Blood Count 3.62 MC/CUMM (3.8-5.5); Red Cell Distribution Width 17.5 % (9.3-17.3); White Blood Count 5.2 T/CUMM (4-12)
[2020-05-13] MEDS ORDERED: DEXAMETHASONE INJ 10 MG in SODIUM CHLORIDE 0.9% 50 ML IV SCH (09:30)
[2020-05-13] MEDS: FLUCONAZOLE INJ 100 MG in IV BAG 1 EACH IV SCH (09:34)
[2020-05-13] MEDS: PANTOPRAZOLE 40 MG VIAL IV SCH ×2 (09:37→20:21)
[2020-05-13 09:44] LABS: Albumin 2.8 G/DL (3.4-5.0); Bilirubin,Total 1.9 MG/DL (0.2-1.0); Calcium 8.5 MG/DL (8.5-10.1); Osmolality,Calculated 272.1 MOS/KG (273-304); Potassium 3.8 MMOL/L (3.5-5.1); Total Protein 5.8 G/DL (5.0-7.5)
[2020-05-13] MEDS ORDERED: SODIUM CHLORIDE 0.9% 1,000 ML IV PRN (09:45)
[2020-05-13 09:46] LABS: Hypochromasia 1+; Lymphocytes 1 % (20-55); Microcytosis 1+; Segmented Neutrophils 98 % (50-85); Total Cells Counted 100
[2020-05-13 09:47] LABS: Anisocytosis 1+; Platelet Estimate Decreased
[2020-05-13] MEDS ORDERED: DOXORUBICIN IV ONE ×2 (09:53→13:00)
[2020-05-13] MEDS ORDERED: GRANISETRON 1 MG/1 ML VIAL IV SCH (10:00)
[2020-05-13] MEDS: ONDANSETRON 4 MG/2 ML VIAL IV PRN ×2 (13:56→20:23)
[2020-05-13] MEDS ORDERED: SODIUM CHLORIDE 0.9% IV ONE (14:27)
[2020-05-13] MEDS ORDERED: METHOTREXATE IV ONE (14:27)
[2020-05-13] MEDS: DEXAMETHASONE INJ 10 MG in SODIUM CHLORIDE 0.9% 50 ML IV SCH (15:42)
[2020-05-13] MEDS: MINERAL OIL/PETROLATUM OPH OINT 3.5 GM TUBE LEFT EYE SCH (20:28)
[2020-05-14] MEDS: LORazepam 2 MG/1 ML VIAL IV PRN ×2 (00:37→23:59)
[2020-05-14] MEDS: HYDROmorphone 2 MG/1 ML VIAL IV PRN ×4 (00:45→17:25)
[2020-05-14 03:41] LABS: Hematocrit 25.9 VOL% (35.7-47.0); Hemoglobin 8.8 GM/DL (12.0-16.0); Immature Granulocytes % 1.1 %; Immature Granulocytes Absolute 0.05 #; Lymphocytes % 0.2 % (21.3-54.2); Mean Corpuscular Volume 84.9 FL (87-102); Mean Platelet Volume 11.3 FL (9.6-12.0); NRBC # 0.02 10*3/uL; Neutrophils % 96.7 % (38.7-73.9); Red Blood Count 3.05 MC/CUMM (3.8-5.5); Red Cell Distribution Width 17.5 % (9.3-17.3); White Blood Count 4.4 T/CUMM (4-12)
[2020-05-14 03:50] LABS: Platelet Count 39 T/CUMM (130-400)
[2020-05-14 04:02] LABS: Hypochromasia 1+; Lymphocytes 1 % (20-55); Microcytosis 1+; Platelet Estimate Decreased; Segmented Neutrophils 98 % (50-85); Total Cells Counted 100
[2020-05-14] MEDS: LEVALBUTEROL 1.25 MG/3 ML NEB RESP TX SCH ×3 (08:11→23:07)
[2020-05-14] MEDS: DORNASE ALFA 2.5 MG/2.5 ML VIAL RESP TX SCH (08:16)
[2020-05-14] MEDS: ONDANSETRON 4 MG/2 ML VIAL IV PRN ×2 (08:43→17:28)
[2020-05-14] MEDS: PANTOPRAZOLE 40 MG VIAL IV SCH ×2 (08:53→20:17)
[2020-05-14] MEDS: MENTHOL/ZINC OXIDE OINT 71 GM JAR TOP SCH ×2 (08:55→20:20)
[2020-05-14] MEDS: DEXAMETHASONE INJ 10 MG in SODIUM CHLORIDE 0.9% 50 ML IV SCH (09:30)
[2020-05-14] MEDS: MINERAL OIL/PETROLATUM OPH OINT 3.5 GM TUBE LEFT EYE SCH (20:21)
[2020-05-15] MEDS: HYDROmorphone 2 MG/1 ML VIAL IV PRN ×5 (00:04→23:51)
[2020-05-15 03:52] LABS: Hematocrit 24.9 VOL% (35.7-47.0); Hemoglobin 8.3 GM/DL (12.0-16.0); Immature Granulocytes % 0.5 %; Immature Granulocytes Absolute 0.01 #; Lymphocytes % 1.9 % (21.3-54.2); Mean Corpuscular HGB Conc 33.3 GM/DL (32-36); Mean Corpuscular Volume 87.7 FL (87-102); Monocytes % 2.8 % (1.7-12.7); Neutrophils % 94.8 % (38.7-73.9); Red Blood Count 2.84 MC/CUMM (3.8-5.5); Red Cell Distribution Width 18.2 % (9.3-17.3)
[2020-05-15] MEDS: SODIUM CHLORIDE 0.9% 1,000 ML IV SCH (03:59)
[2020-05-15 04:02] LABS: White Blood Count 2.2 T/CUMM (4-12)
[2020-05-15 04:03] LABS: Platelet Count 26 T/CUMM (130-400)
[2020-05-15 04:20] LABS: Albumin 2.3 G/DL (3.4-5.0); Bilirubin,Total 1.7 MG/DL (0.2-1.0); Calcium 7.9 MG/DL (8.5-10.1); Potassium 3.8 MMOL/L (3.5-5.1); Total Protein 4.8 G/DL (5.0-7.5)
[2020-05-15 04:30] LABS: Hypochromasia 1+; Microcytosis 1+; Platelet Estimate Decreased; Segmented Neutrophils 98 % (50-85); Total Cells Counted 100
[2020-05-15] MEDS: MENTHOL/ZINC OXIDE OINT 71 GM JAR TOP SCH ×2 (08:10→20:23)
[2020-05-15] MEDS: LEVALBUTEROL 1.25 MG/3 ML NEB RESP TX SCH ×3 (08:32→23:10)
[2020-05-15] MEDS: DORNASE ALFA 2.5 MG/2.5 ML VIAL RESP TX SCH (08:37)
[2020-05-15] MEDS: PANTOPRAZOLE 40 MG VIAL IV SCH ×2 (09:32→20:21)
[2020-05-15] MEDS: DEXAMETHASONE INJ 10 MG in SODIUM CHLORIDE 0.9% 50 ML IV SCH (09:32)
[2020-05-15] MEDS: fentaNYL 25 MCG/HR PATCH TRANSDERM SCH (15:03)
[2020-05-15] MEDS: MINERAL OIL/PETROLATUM OPH OINT 3.5 GM TUBE LEFT EYE SCH (20:24)
[2020-05-15] MEDS: LORazepam 2 MG/1 ML VIAL IV PRN (23:47)
[2020-05-16] MEDS: SODIUM CHLORIDE 0.9% 1,000 ML IV SCH ×2 (01:13→21:36)
[2020-05-16 03:53] LABS: Hematocrit 24.4 VOL% (35.7-47.0); Hemoglobin 8.6 GM/DL (12.0-16.0); Immature Granulocytes % 0.6 %; Immature Granulocytes Absolute 0.01 #; Lymphocytes % 2.3 % (21.3-54.2); Mean Corpuscular HGB Conc 35.2 GM/DL (32-36); Mean Corpuscular Volume 85.6 FL (87-102); Mean Platelet Volume 12.7 FL (9.6-12.0); Monocytes % 1.8 % (1.7-12.7); Neutrophils % 95.3 % (38.7-73.9); Red Blood Count 2.85 MC/CUMM (3.8-5.5); Red Cell Distribution Width 19.1 % (9.3-17.3); White Blood Count 1.7 T/CUMM (4-12)
[2020-05-16 03:57] LABS: Platelet Count 21 T/CUMM (130-400)
[2020-05-16 04:29] LABS: Hypochromasia 1+; Lymphocytes 4 % (20-55); Microcytosis 1+; Nucleated Red Blood Cells 1 (0-5); Ovalocytes Slight; Platelet Estimate Decreased; Segmented Neutrophils 93 % (50-85); Total Cells Counted 100
[2020-05-16] MEDS: DORNASE ALFA 2.5 MG/2.5 ML VIAL RESP TX SCH (08:00)
[2020-05-16] MEDS: LEVALBUTEROL 1.25 MG/3 ML NEB RESP TX SCH ×3 (08:12→23:40)
[2020-05-16] MEDS: MENTHOL/ZINC OXIDE OINT 71 GM JAR TOP SCH ×2 (09:15→21:36)
[2020-05-16] MEDS: PANTOPRAZOLE 40 MG VIAL IV SCH ×2 (09:17→21:36)
[2020-05-16] MEDS: DEXAMETHASONE INJ 10 MG in SODIUM CHLORIDE 0.9% 50 ML IV SCH (09:20)
[2020-05-16] MEDS: HYDROmorphone 2 MG/1 ML VIAL IV PRN ×3 (12:40→21:36)
[2020-05-16] MEDS: MINERAL OIL/PETROLATUM OPH OINT 3.5 GM TUBE LEFT EYE SCH (21:36)
[2020-05-17] MEDS: LORazepam 2 MG/1 ML VIAL IV PRN (01:47)
[2020-05-17 03:53] LABS: Eosinophils % 0.6 % (0.00-10.9); Hematocrit 22.6 VOL% (35.7-47.0); Hemoglobin 7.7 GM/DL (12.0-16.0); Immature Granulocytes % 0.6 %; Immature Granulocytes Absolute 0.01 #; Lymphocytes # 0.1 10*3/uL (1.4-4.0); Lymphocytes % 3.6 % (21.3-54.2); Mean Corpuscular HGB Conc 34.1 GM/DL (32-36); Mean Corpuscular Volume 85.9 FL (87-102); Mean Platelet Volume 9.9 FL (9.6-12.0); Monocytes % 0.6 % (1.7-12.7); Neutrophils % 94.6 % (38.7-73.9); Red Blood Count 2.63 MC/CUMM (3.8-5.5); White Blood Count 1.7 T/CUMM (4-12)
[2020-05-17 04:31] LABS: Platelet Count 15 T/CUMM (130-400)
[2020-05-17 04:37] LABS: Hypochromasia 2+; Lymphocytes 2 % (20-55); Microcytosis 1+; Nucleated Red Blood Cells 1 (0-5); Platelet Estimate Decreased; Segmented Neutrophils 98 % (50-85); Total Cells Counted 100
[2020-05-17] MEDS: LEVALBUTEROL 1.25 MG/3 ML NEB RESP TX SCH ×2 (07:18→15:10)
[2020-05-17] MEDS: DORNASE ALFA 2.5 MG/2.5 ML VIAL RESP TX SCH (07:18)
[2020-05-17] MEDS ORDERED: SODIUM CHLORIDE 0.9% 1,000 ML IV PRN (08:30)
[2020-05-17] MEDS ORDERED: ONDANSETRON 4 MG/2 ML VIAL IV PRN (08:53)
[2020-05-17] MEDS ORDERED: TEMAZEPAM 7.5 MG CAPSULE PO PRN (08:53)
[2020-05-17] MEDS ORDERED: diphenhydrAMINE CAP 25 MG CAPSULE PO PRN (08:53)
[2020-05-17] MEDS ORDERED: chlorproMAZINE 25 MG TABLET PO PRN (08:53)
[2020-05-17] MEDS ORDERED: LACTULOSE 20 GM/30 ML UDCUP PO PRN (08:53)
[2020-05-17] MEDS ORDERED: ACETAMINOPHEN 325 MG TABLET PO PRN (08:53)
[2020-05-17] MEDS ORDERED: guaiFENesin 200 MG/10 ML UDCUP PO PRN (08:53)
[2020-05-17] MEDS ORDERED: ALUMINUM/MAGNES/SIMETH MAX STR 30 ML UDCUP PO PRN (08:53)
[2020-05-17] MEDS ORDERED: LOPERAMIDE 2 MG CAPSULE PO PRN ×2 (08:53)
[2020-05-17] MEDS ORDERED: chlorproMAZINE INJ 50 MG in SODIUM CHLORIDE 0.9% 100 ML IV PRN (08:53)
[2020-05-17] MEDS ORDERED: MYLANTA/LIDO VISC 2:1 300 ML BOTTLE SWISH/SPIT PRN (08:53)
[2020-05-17] MEDS ORDERED: ALPRAZolam 0.25 MG TABLET PO PRN (08:53)
[2020-05-17] MEDS ORDERED: MAGNESIUM HYDROXIDE SUSP 30 ML UDCUP PO PRN (08:53)
[2020-05-17] MEDS ORDERED: chlorproMAZINE INJ 25 MG in SODIUM CHLORIDE 0.9% 100 ML IV PRN (08:53)
[2020-05-17] MEDS ORDERED: traMADol 50 MG TABLET PO PRN (08:53)
[2020-05-17] MEDS ORDERED: MYLANTA/LIDO VISC 2:1 300 ML BOTTLE SWISH/SWAL PRN (08:53)
[2020-05-17] MEDS: PANTOPRAZOLE 40 MG VIAL IV SCH ×2 (09:36→22:03)
[2020-05-17] MEDS: DEXAMETHASONE INJ 10 MG in SODIUM CHLORIDE 0.9% 50 ML IV SCH (09:38)
[2020-05-17] MEDS: HYDROmorphone 2 MG/1 ML VIAL IV PRN ×2 (10:32→17:45)
[2020-05-17] MEDS: MENTHOL/ZINC OXIDE OINT 71 GM JAR TOP SCH ×2 (10:59→22:03)
[2020-05-17] MEDS: MINERAL OIL/PETROLATUM OPH OINT 3.5 GM TUBE LEFT EYE SCH (22:04)
[2020-05-17] MEDS: BISACODYL 10 MG SUPP RECTAL PRN (22:16)
[2020-05-17] MEDS: SODIUM CHLORIDE 0.9% 1,000 ML IV SCH (22:17)
[2020-05-17] MEDS: ONDANSETRON 4 MG/2 ML VIAL IV PRN (22:20)
[2020-05-18] MEDS: LEVALBUTEROL 1.25 MG/3 ML NEB RESP TX SCH ×3 (00:51→14:40)
[2020-05-18] MEDS: LORazepam 2 MG/1 ML VIAL IV PRN (02:05)
[2020-05-18] MEDS: HYDROmorphone 2 MG/1 ML VIAL IV PRN ×4 (02:06→22:22)
[2020-05-18 06:20] LABS: Hematocrit 28.8 VOL% (35.7-47.0); Hemoglobin 9.9 GM/DL (12.0-16.0); Immature Granulocytes % 1.1 %; Immature Granulocytes Absolute 0.01 #; Lymphocytes # 0.1 10*3/uL (1.4-4.0); Lymphocytes % 5.5 % (21.3-54.2); Mean Corpuscular HGB Conc 34.4 GM/DL (32-36); Mean Corpuscular Volume 84.2 FL (87-102); Mean Platelet Volume 10.4 FL (9.6-12.0); Neutrophils % 93.4 % (38.7-73.9); Red Blood Count 3.42 MC/CUMM (3.8-5.5); Red Cell Distribution Width 17.6 % (9.3-17.3)
[2020-05-18 06:27] LABS: Platelet Count 34 T/CUMM (130-400); White Blood Count 0.9 T/CUMM (4-12)
[2020-05-18 06:40] LABS: Hypochromasia 1+; Lymphocytes 10 % (20-55); Microcytosis 1+; Nucleated Red Blood Cells 2 (0-5); Platelet Estimate Decreased; Segmented Neutrophils 90 % (50-85); Total Cells Counted 100
[2020-05-18] MEDS: DORNASE ALFA 2.5 MG/2.5 ML VIAL RESP TX SCH (07:40)
[2020-05-18] MEDS: ONDANSETRON 4 MG/2 ML VIAL IV PRN ×2 (08:29→16:13)
[2020-05-18] MEDS ORDERED: DOCUSATE SODIUM 100 MG CAPSULE PO PRN (09:07)
[2020-05-18] MEDS ORDERED: POLYETHYLENE GLYCOL POWDER 17 GM PACK PO PRN (09:07)
[2020-05-18] MEDS: fentaNYL 25 MCG/HR PATCH TRANSDERM SCH (10:02)
[2020-05-18] MEDS: DEXAMETHASONE 4 MG/1 ML VIAL IV SCH (10:02)
[2020-05-18] MEDS: MENTHOL/ZINC OXIDE OINT 71 GM JAR TOP SCH ×2 (10:02→20:04)
[2020-05-18] MEDS: POLYETHYLENE GLYCOL POWDER 17 GM PACK PO SCH (10:02)
[2020-05-18] MEDS: FILGRASTIM-SNDZ 300 MCG/0.5 ML SYRINGE SUBCUT SCH (10:02)
[2020-05-18] MEDS: HYDROmorphone 2 MG TABLET PO PRN (11:47)
[2020-05-18] MEDS: DOCUSATE SODIUM 100 MG CAPSULE PO SCH (20:03)
[2020-05-18] MEDS: SODIUM CHLORIDE 0.9% 1,000 ML IV SCH (20:04)
[2020-05-18] MEDS: MINERAL OIL/PETROLATUM OPH OINT 3.5 GM TUBE LEFT EYE SCH (20:07)
[2020-05-19] MEDS: LEVALBUTEROL 1.25 MG/3 ML NEB RESP TX SCH ×4 (00:05→23:50)
[2020-05-19] MEDS: LORazepam 2 MG/1 ML VIAL IV PRN ×2 (01:52→23:53)
[2020-05-19] MEDS: HYDROmorphone 2 MG/1 ML VIAL IV PRN ×4 (03:54→20:56)
[2020-05-19 04:32] LABS: Hematocrit 29.2 VOL% (35.7-47.0); Hemoglobin 10.4 GM/DL (12.0-16.0); Immature Granulocytes % 8.6 %; Immature Granulocytes Absolute 0.07 #; Lymphocytes # 0.1 10*3/uL (1.4-4.0); Lymphocytes % 6.2 % (21.3-54.2); Mean Corpuscular HGB Conc 35.6 GM/DL (32-36); Mean Corpuscular Volume 83.4 FL (87-102); Mean Platelet Volume 10.5 FL (9.6-12.0); Monocytes % 1.2 % (1.7-12.7); Red Cell Distribution Width 18.1 % (9.3-17.3)
[2020-05-19 04:35] LABS: Platelet Count 21 T/CUMM (130-400); White Blood Count 0.8 T/CUMM (4-12)
[2020-05-19 04:49] LABS: Calcium 7.6 MG/DL (8.5-10.1); Potassium 3.4 MMOL/L (3.5-5.1)
[2020-05-19 04:51] LABS: Albumin 2.2 G/DL (3.4-5.0); Bilirubin,Total 2.2 MG/DL (0.2-1.0); Calcium 7.9 MG/DL (8.5-10.1); Osmolality,Calculated 266.2 MOS/KG (273-304); Potassium 3.3 MMOL/L (3.5-5.1); Total Protein 4.7 G/DL (6.4-8.2)
[2020-05-19 05:11] LABS: Band Neutrophils 3 % (0-10); Hypochromasia 1+; Lymphocytes 3 % (20-55); Microcytosis 1+; Nucleated Red Blood Cells 1 (0-5); Platelet Estimate Decreased; Segmented Neutrophils 93 % (50-85); Total Cells Counted 100
[2020-05-19] MEDS: DOCUSATE SODIUM 100 MG CAPSULE PO SCH ×2 (09:54→20:56)
[2020-05-19] MEDS: POLYETHYLENE GLYCOL POWDER 17 GM PACK PO SCH ×2 (09:54→20:56)
[2020-05-19] MEDS: FILGRASTIM-SNDZ 300 MCG/0.5 ML SYRINGE SUBCUT SCH (09:56)
[2020-05-19] MEDS: DEXAMETHASONE 4 MG/1 ML VIAL IV SCH (09:57)
[2020-05-19] MEDS: MENTHOL/ZINC OXIDE OINT 71 GM JAR TOP SCH ×2 (10:00→21:12)
[2020-05-19] MEDS: fentaNYL 50 MCG/HR PATCH TRANSDERM SCH (17:55)
[2020-05-19] MEDS: SODIUM CHLORIDE 0.9% 1,000 ML IV SCH (20:59)
[2020-05-19] MEDS: MINERAL OIL/PETROLATUM OPH OINT 3.5 GM TUBE LEFT EYE SCH (21:12)
[2020-05-20] MEDS: HYDROmorphone 2 MG/1 ML VIAL IV PRN ×4 (01:55→22:31)
[2020-05-20 06:49] LABS: Hematocrit 30.9 VOL% (35.7-47.0); Hemoglobin 10.3 GM/DL (12.0-16.0); Immature Granulocytes % 16.7 %; Immature Granulocytes Absolute 0.03 #; Lymphocytes # 0.1 10*3/uL (1.4-4.0); Lymphocytes % 27.8 % (21.3-54.2); Mean Corpuscular HGB Conc 33.3 GM/DL (32-36); Monocytes % 5.6 % (1.7-12.7); Neutrophils % 49.9 % (38.7-73.9); Red Blood Count 3.55 MC/CUMM (3.8-5.5); Red Cell Distribution Width 17.7 % (9.3-17.3)
[2020-05-20 06:52] LABS: Platelet Count 17 T/CUMM (130-400); White Blood Count 0.2 T/CUMM (4-12)
[2020-05-20 07:09] LABS: Calcium 7.9 MG/DL (8.5-10.1); Osmolality,Calculated 273.8 MOS/KG (273-304); Potassium 3.5 MMOL/L (3.5-5.1)
[2020-05-20 07:15] LABS: Band Neutrophils 10 % (0-10); Lymphocytes 5 % (20-55); Segmented Neutrophils 80 % (50-85); Total Cells Counted 100
[2020-05-20 07:16] LABS: Anisocytosis 1+; Platelet Estimate Decreased
[2020-05-20] MEDS: LEVALBUTEROL 1.25 MG/3 ML NEB RESP TX SCH ×3 (07:38→23:49)
[2020-05-20] MEDS ORDERED: SODIUM CHLORIDE 0.9% 1,000 ML IV PRN (09:05)
[2020-05-20] MEDS: DEXAMETHASONE 4 MG/1 ML VIAL IV SCH (10:21)
[2020-05-20] MEDS: FILGRASTIM-SNDZ 300 MCG/0.5 ML SYRINGE SUBCUT SCH (10:23)
[2020-05-20] MEDS: POLYETHYLENE GLYCOL POWDER 17 GM PACK PO SCH ×4 (10:23→21:59)
[2020-05-20] MEDS: ONDANSETRON 4 MG/2 ML VIAL IV PRN ×3 (10:33→21:56)
[2020-05-20] MEDS: MENTHOL/ZINC OXIDE OINT 71 GM JAR TOP SCH ×2 (10:33→21:58)
[2020-05-20] MEDS: HYDROmorphone 2 MG TABLET PO PRN (10:34)
[2020-05-20] MEDS: SODIUM CHLORIDE 0.9% 1,000 ML IV SCH (18:53)
[2020-05-20] MEDS: MINERAL OIL/PETROLATUM OPH OINT 3.5 GM TUBE LEFT EYE SCH (21:58)
[2020-05-20] MEDS: LORazepam 2 MG/1 ML VIAL IV PRN (22:31)
[2020-05-21] MEDS: DOCUSATE SODIUM 100 MG CAPSULE PO SCH ×2 (03:11→14:18)
[2020-05-21] MEDS: HYDROmorphone 2 MG/1 ML VIAL IV PRN ×4 (04:17→22:06)
[2020-05-21 07:52] LABS: Calcium 7.5 MG/DL (8.5-10.1); Osmolality,Calculated 276.5 MOS/KG (273-304)
[2020-05-21 08:04] LABS: Hematocrit 22.9 VOL% (35.7-47.0); Hemoglobin 7.8 GM/DL (12.0-16.0); Mean Corpuscular HGB Conc 34.1 GM/DL (32-36); Mean Corpuscular Volume 84.2 FL (87-102); Mean Platelet Volume 12.2 FL (9.6-12.0); Monocytes % 18.8 % (1.7-12.7); Neutrophils % 56.2 % (38.7-73.9); Red Blood Count 2.72 MC/CUMM (3.8-5.5); Red Cell Distribution Width 17.3 % (9.3-17.3)
[2020-05-21 08:07] LABS: Platelet Count 35 T/CUMM (130-400); White Blood Count 0.2 T/CUMM (4-12)
[2020-05-21] MEDS: LEVALBUTEROL 1.25 MG/3 ML NEB RESP TX SCH ×3 (08:30→23:50)
[2020-05-21 08:38] LABS: Band Neutrophils 20 % (0-10); Hypochromasia Slight; Lymphocytes 30 % (20-55); Nucleated Red Blood Cells 1 (0-5); Segmented Neutrophils 40 % (50-85); Total Cells Counted 100
[2020-05-21 08:39] LABS: Platelet Estimate Decreased
[2020-05-21] MEDS: ONDANSETRON 4 MG/2 ML VIAL IV PRN ×3 (08:45→22:07)
[2020-05-21 09:19] LABS: Bilirubin,Total 2.8 MG/DL (0.2-1.0); Calcium 7.3 MG/DL (8.5-10.1); Osmolality,Calculated 276.5 MOS/KG (273-304); Total Protein 4.4 G/DL (6.4-8.2)
[2020-05-21] MEDS: POLYETHYLENE GLYCOL POWDER 17 GM PACK PO SCH ×2 (09:50→12:24)
[2020-05-21] MEDS ORDERED: SODIUM CHLORIDE 0.9% 1,000 ML IV PRN ×2 (09:53→14:38)
[2020-05-21] MEDS: DEXAMETHASONE 4 MG/1 ML VIAL IV SCH (09:55)
[2020-05-21] MEDS: MENTHOL/ZINC OXIDE OINT 71 GM JAR TOP SCH ×2 (09:57→22:49)
[2020-05-21] MEDS: FILGRASTIM-SNDZ 300 MCG/0.5 ML SYRINGE SUBCUT SCH (09:57)
[2020-05-21] MEDS ORDERED: LEUCOVORIN TAB 5 MG TABLET PO SCH (10:00)
[2020-05-21] MEDS: LEUCOVORIN IV SCH ×2 (12:19→22:07)
[2020-05-21] MEDS: DEXTROSE 5% IV SCH ×2 (12:19→22:07)
[2020-05-21] MEDS ORDERED: POTASSIUM CHLORIDE 20 MEQ PACK PO ONE (13:18)
[2020-05-21] MEDS ORDERED: POTASSIUM CHLORIDE 20 MEQ/15 ML UDCUP PO ONE (13:47)
[2020-05-21] MEDS: MINERAL OIL/PETROLATUM OPH OINT 3.5 GM TUBE LEFT EYE SCH (21:00)
[2020-05-21] MEDS: LORazepam 2 MG/1 ML VIAL IV PRN (22:06)
[2020-05-21] MEDS: SODIUM CHLORIDE 0.9% 1,000 ML IV SCH (22:50)
[2020-05-22] MEDS: DOCUSATE SODIUM 100 MG CAPSULE PO SCH ×2 (00:18→09:01)
[2020-05-22] MEDS: DEXTROSE 5% IV SCH ×4 (03:52→22:11)
[2020-05-22] MEDS: LEUCOVORIN IV SCH ×4 (03:52→22:11)
[2020-05-22] MEDS: HYDROmorphone 2 MG/1 ML VIAL IV PRN ×4 (04:30→18:17)
[2020-05-22 06:48] LABS: Eosinophils % 7.4 % (0.00-10.9); Hematocrit 32.6 VOL% (35.7-47.0); Hemoglobin 10.9 GM/DL (12.0-16.0); Immature Granulocytes % 3.7 %; Immature Granulocytes Absolute 0.01 #; Lymphocytes # 0.1 10*3/uL (1.4-4.0); Lymphocytes % 18.5 % (21.3-54.2); Mean Corpuscular HGB Conc 33.4 GM/DL (32-36); Mean Corpuscular Volume 86.5 FL (87-102); Monocytes % 33.3 % (1.7-12.7); NRBC # 0.03 10*3/uL; Neutrophils % 37.1 % (38.7-73.9); Red Blood Count 3.77 MC/CUMM (3.8-5.5); Red Cell Distribution Width 16.6 % (9.3-17.3)
[2020-05-22 06:52] LABS: Platelet Count 21 T/CUMM (130-400); White Blood Count 0.3 T/CUMM (4-12)
[2020-05-22 07:09] LABS: Albumin 1.9 G/DL (3.4-5.0); Calcium 7.7 MG/DL (8.5-10.1); Osmolality,Calculated 272.7 MOS/KG (273-304); Total Protein 4.5 G/DL (6.4-8.2)
[2020-05-22] MEDS: LEVALBUTEROL 1.25 MG/3 ML NEB RESP TX SCH ×2 (07:20→14:03)
[2020-05-22] MEDS: DEXAMETHASONE 4 MG/1 ML VIAL IV SCH (08:59)
[2020-05-22] MEDS: FILGRASTIM-SNDZ 300 MCG/0.5 ML SYRINGE SUBCUT SCH (09:03)
[2020-05-22] MEDS: ONDANSETRON 4 MG/2 ML VIAL IV PRN ×2 (09:58→18:15)
[2020-05-22] MEDS: POLYETHYLENE GLYCOL POWDER 17 GM PACK PO SCH (10:05)
[2020-05-22] MEDS: MENTHOL/ZINC OXIDE OINT 71 GM JAR TOP SCH ×2 (10:05→21:16)
[2020-05-22] MEDS: fentaNYL 50 MCG/HR PATCH TRANSDERM SCH (10:10)
[2020-05-22 10:33] LABS: Band Neutrophils 10 % (0-10); Lymphocytes 20 % (20-55); Platelet Estimate Decreased; Schistocytes Slight; Segmented Neutrophils 20 % (50-85); Total Cells Counted 100
[2020-05-22] MEDS ORDERED: MAGNESIUM SULF RIDER 2 GM in PREMIX 1 EACH IV ONE (10:44)
[2020-05-22] MEDS ORDERED: POTASSIUM CHLORIDE 20 MEQ PACK PO ONE (10:46)
[2020-05-22] MEDS ORDERED: POTASSIUM CHLORIDE 20 MEQ/15 ML UDCUP PO ONE (11:00)
[2020-05-22] MEDS: SODIUM CHLORIDE 0.9% 1,000 ML IV SCH ×2 (17:07→22:11)
[2020-05-22] MEDS: PROMETHAZINE INJ 25 MG in SODIUM CHLORIDE 0.9% 50 ML IV PRN (21:13)
[2020-05-22] MEDS: MINERAL OIL/PETROLATUM OPH OINT 3.5 GM TUBE LEFT EYE SCH (21:16)
[2020-05-23] MEDS: ONDANSETRON 4 MG/2 ML VIAL IV PRN (00:30)
[2020-05-23] MEDS: LEVALBUTEROL 1.25 MG/3 ML NEB RESP TX SCH ×4 (00:35→23:50)
[2020-05-23] MEDS: HYDROmorphone 2 MG/1 ML VIAL IV PRN ×4 (00:53→20:13)
[2020-05-23] MEDS: DEXTROSE 5% IV SCH ×4 (03:48→22:10)
[2020-05-23] MEDS: LEUCOVORIN IV SCH ×4 (03:48→22:10)
[2020-05-23 05:55] LABS: Basophils % 2.9 % (0.0-0.8); Hematocrit 32.8 VOL% (35.7-47.0); Hemoglobin 11.3 GM/DL (12.0-16.0); Immature Granulocytes % 11.7 %; Immature Granulocytes Absolute 0.12 #; Lymphocytes # 0.1 10*3/uL (1.4-4.0); Lymphocytes % 5.8 % (21.3-54.2); Mean Corpuscular HGB Conc 34.5 GM/DL (32-36); Mean Corpuscular Volume 84.8 FL (87-102); Monocytes % 23.3 % (1.7-12.7); NRBC # 0.06 10*3/uL; Neutrophils % 56.3 % (38.7-73.9); Red Blood Count 3.87 MC/CUMM (3.8-5.5); Red Cell Distribution Width 17.8 % (9.3-17.3)
[2020-05-23 06:00] LABS: Platelet Count 24 T/CUMM (130-400)
[2020-05-23 06:05] LABS: Bilirubin,Total 2.1 MG/DL (0.2-1.0); Total Protein 4.6 G/DL (6.4-8.2)
[2020-05-23 06:32] LABS: Band Neutrophils 9 % (0-10); Hypochromasia Slight; Lymphocytes 21 % (20-55); Microcytosis 1+; Nucleated Red Blood Cells 2 (0-5); Platelet Estimate Decreased; Segmented Neutrophils 39 % (50-85); Total Cells Counted 100
[2020-05-23] MEDS: PROMETHAZINE INJ 25 MG in SODIUM CHLORIDE 0.9% 50 ML IV PRN ×3 (07:59→20:12)
[2020-05-23] MEDS: MENTHOL/ZINC OXIDE OINT 71 GM JAR TOP SCH ×2 (08:08→22:19)
[2020-05-23] MEDS: DEXAMETHASONE 4 MG/1 ML VIAL IV SCH (09:59)
[2020-05-23] MEDS: FILGRASTIM-SNDZ 300 MCG/0.5 ML SYRINGE SUBCUT SCH (09:59)
[2020-05-23] MEDS: POTASSIUM CHLORIDE RIDER 20 MEQ in PREMIX 1 EACH IV PRN (15:15)
[2020-05-23] MEDS ORDERED: POTASSIUM CHLORIDE RIDER 10 MEQ in PREMIX 1 EACH IV PRN (18:37)
[2020-05-23] MEDS: MINERAL OIL/PETROLATUM OPH OINT 3.5 GM TUBE LEFT EYE SCH (22:20)
[2020-05-24] MEDS: SODIUM CHLORIDE 0.9% 1,000 ML IV SCH ×2 (00:16→03:25)
[2020-05-24] MEDS: PROMETHAZINE INJ 25 MG in SODIUM CHLORIDE 0.9% 50 ML IV PRN ×3 (00:16→23:59)
[2020-05-24] MEDS: HYDROmorphone 2 MG/1 ML VIAL IV PRN ×3 (00:16→22:06)
[2020-05-24] MEDS: LEUCOVORIN IV SCH ×4 (04:13→21:37)
[2020-05-24] MEDS: DEXTROSE 5% IV SCH ×4 (04:13→21:37)
[2020-05-24 05:47] LABS: Basophils # 0.1 10*3/uL (0.0-0.2); Basophils % 2.7 % (0.0-0.8); Hemoglobin 11.3 GM/DL (12.0-16.0); Lymphocytes # 0.2 10*3/uL (1.4-4.0); Lymphocytes % 5.1 % (21.3-54.2); Mean Corpuscular HGB Conc 33.2 GM/DL (32-36); Mean Corpuscular Volume 86.1 FL (87-102); Mean Platelet Volume 11.8 FL (9.6-12.0); Monocytes % 12.9 % (1.7-12.7); NRBC # 0.06 10*3/uL; Neutrophils % 67.3 % (38.7-73.9); Red Blood Count 3.95 MC/CUMM (3.8-5.5); Red Cell Distribution Width 18.6 % (9.3-17.3); White Blood Count 3.3 T/CUMM (4-12)
[2020-05-24 06:26] LABS: Bilirubin,Total 1.7 MG/DL (0.2-1.0); Osmolality,Calculated 270.7 MOS/KG (273-304); Potassium 3.1 MMOL/L (3.5-5.1); Total Protein 4.5 G/DL (6.4-8.2)
[2020-05-24 06:28] LABS: Platelet Count 38 T/CUMM (130-400)
[2020-05-24 06:35] LABS: Band Neutrophils 13 % (0-10); Lymphocytes 9 % (20-55); Platelet Estimate Decreased; Segmented Neutrophils 63 % (50-85); Total Cells Counted 100
[2020-05-24 06:36] LABS: Microcytosis Slight
[2020-05-24] MEDS ORDERED: HEPARIN LOCK FLUSH 500 UNIT/5 ML SYRINGE IV PRN (07:46)
[2020-05-24] MEDS: LEVALBUTEROL 1.25 MG/3 ML NEB RESP TX SCH ×2 (08:05→14:27)
[2020-05-24] MEDS: DEXAMETHASONE 4 MG/1 ML VIAL IV SCH (08:27)
[2020-05-24] MEDS: FILGRASTIM-SNDZ 300 MCG/0.5 ML SYRINGE SUBCUT SCH (08:28)
[2020-05-24] MEDS: POTASSIUM CHLORIDE RIDER 20 MEQ in PREMIX 1 EACH IV PRN ×2 (08:28→15:59)
[2020-05-24] MEDS: MENTHOL/ZINC OXIDE OINT 71 GM JAR TOP SCH ×2 (08:30→23:12)
[2020-05-24] MEDS: MINERAL OIL/PETROLATUM OPH OINT 3.5 GM TUBE LEFT EYE SCH (21:44)
[2020-05-25] MEDS: LEVALBUTEROL 1.25 MG/3 ML NEB RESP TX SCH ×4 (00:32→23:52)
[2020-05-25] MEDS: LEUCOVORIN IV SCH ×2 (04:47→09:24)
[2020-05-25] MEDS: DEXTROSE 5% IV SCH ×2 (04:47→09:24)
[2020-05-25] MEDS: SODIUM CHLORIDE 0.9% 1,000 ML IV SCH (04:48)
[2020-05-25] MEDS: HYDROmorphone 2 MG/1 ML VIAL IV PRN ×4 (04:49→22:02)
[2020-05-25 06:02] LABS: Basophils % 0.1 % (0.0-0.8); Eosinophils % 0.1 % (0.00-10.9); Hematocrit 37.3 VOL% (35.7-47.0); Hemoglobin 12.2 GM/DL (12.0-16.0); Immature Granulocytes % 13.9 %; Immature Granulocytes Absolute 1.17 #; Lymphocytes # 0.3 10*3/uL (1.4-4.0); Lymphocytes % 3.2 % (21.3-54.2); Mean Corpuscular HGB Conc 32.7 GM/DL (32-36); Mean Corpuscular Volume 88.4 FL (87-102); Mean Platelet Volume 10.7 FL (9.6-12.0); Monocytes % 9.2 % (1.7-12.7); NRBC # 0.08 10*3/uL; Neutrophils % 73.5 % (38.7-73.9); Platelet Count 55 T/CUMM (130-400); Red Blood Count 4.22 MC/CUMM (3.8-5.5); White Blood Count 8.4 T/CUMM (4-12)
[2020-05-25 06:26] LABS: Band Neutrophils 4 % (0-10); Lymphocytes 8 % (20-55); Microcytosis Slight; Nucleated Red Blood Cells 2 (0-5); Platelet Estimate Decreased; Segmented Neutrophils 76 % (50-85); Total Cells Counted 100
[2020-05-25] MEDS: fentaNYL 50 MCG/HR PATCH TRANSDERM SCH (09:18)
[2020-05-25] MEDS: DEXAMETHASONE 4 MG/1 ML VIAL IV SCH (09:19)
[2020-05-25] MEDS: FILGRASTIM-SNDZ 300 MCG/0.5 ML SYRINGE SUBCUT SCH (09:20)
[2020-05-25] MEDS: PROMETHAZINE INJ 25 MG in SODIUM CHLORIDE 0.9% 50 ML IV PRN ×2 (10:27→21:23)
[2020-05-25] MEDS: MENTHOL/ZINC OXIDE OINT 71 GM JAR TOP SCH ×2 (10:30→21:24)
[2020-05-25] MEDS: ONDANSETRON 4 MG/2 ML VIAL IV PRN (17:03)
[2020-05-25] MEDS: MINERAL OIL/PETROLATUM OPH OINT 3.5 GM TUBE LEFT EYE SCH (21:24)
[2020-05-26] MEDS: SODIUM CHLORIDE 0.9% 1,000 ML IV SCH (03:16)
[2020-05-26] MEDS: HYDROmorphone 2 MG/1 ML VIAL IV PRN ×5 (05:23→21:52)
[2020-05-26 06:22] LABS: Basophils % 0.1 % (0.0-0.8); Hematocrit 38.4 VOL% (35.7-47.0); Hemoglobin 12.5 GM/DL (12.0-16.0); Immature Granulocytes Absolute 1.53 #; Lymphocytes # 0.3 10*3/uL (1.4-4.0); Mean Corpuscular HGB Conc 32.6 GM/DL (32-36); Mean Corpuscular Volume 87.5 FL (87-102); Mean Platelet Volume 10.9 FL (9.6-12.0); Monocytes % 6.6 % (1.7-12.7); NRBC # 0.08 10*3/uL; Neutrophils % 80.3 % (38.7-73.9); Platelet Count 72 T/CUMM (130-400); Red Blood Count 4.39 MC/CUMM (3.8-5.5); Red Cell Distribution Width 19.1 % (9.3-17.3); White Blood Count 13.9 T/CUMM (4-12)
[2020-05-26 06:43] LABS: Band Neutrophils 5 % (0-10); Lymphocytes 1 % (20-55); Myelocytes 1 %; Segmented Neutrophils 88 % (50-85); Total Cells Counted 100
[2020-05-26 06:44] LABS: Microcytosis Slight; Platelet Estimate Decreased
[2020-05-26] MEDS: LEVALBUTEROL 1.25 MG/3 ML NEB RESP TX SCH ×3 (07:04→23:26)
[2020-05-26] MEDS: ONDANSETRON 4 MG/2 ML VIAL IV PRN ×2 (08:59→17:09)
[2020-05-26] MEDS: DEXAMETHASONE 4 MG/1 ML VIAL IV SCH (09:00)
[2020-05-26] MEDS ORDERED: METHOTREXATE 50 MG/2 ML VIAL INTRATHEC ONE (09:00)
[2020-05-26] MEDS ORDERED: METHOTREXATE INTRATHEC ONE (09:00)
[2020-05-26] MEDS: MENTHOL/ZINC OXIDE OINT 71 GM JAR TOP SCH ×2 (09:01→21:00)
[2020-05-26] MEDS: MINERAL OIL/PETROLATUM OPH OINT 3.5 GM TUBE LEFT EYE SCH (21:00)
[2020-05-26] MEDS: LORazepam 2 MG/1 ML VIAL IV PRN (22:23)
[2020-05-27] MEDS: SODIUM CHLORIDE 0.9% 1,000 ML IV SCH ×2 (01:10→18:10)
[2020-05-27] MEDS: HYDROmorphone 2 MG/1 ML VIAL IV PRN ×4 (04:42→23:05)
[2020-05-27 06:40] LABS: Basophils % 0.1 % (0.0-0.8); Hematocrit 37.7 VOL% (35.7-47.0); Hemoglobin 12.3 GM/DL (12.0-16.0); Immature Granulocytes Absolute 1.25 #; Lymphocytes # 0.2 10*3/uL (1.4-4.0); Lymphocytes % 2.4 % (21.3-54.2); Mean Corpuscular HGB Conc 32.6 GM/DL (32-36); Mean Corpuscular Volume 88.1 FL (87-102); Mean Platelet Volume 8.8 FL (9.6-12.0); Monocytes % 8.8 % (1.7-12.7); NRBC # 0.06 10*3/uL; Neutrophils % 75.7 % (38.7-73.9); Platelet Count 77 T/CUMM (130-400); Red Blood Count 4.28 MC/CUMM (3.8-5.5); White Blood Count 9.6 T/CUMM (4-12)
[2020-05-27] MEDS: LEVALBUTEROL 1.25 MG/3 ML NEB RESP TX SCH ×3 (07:04→23:42)
[2020-05-27 07:05] LABS: Band Neutrophils 27 % (0-10); Lymphocytes 4 % (20-55); Metamyelocytes 3 %; Platelet Estimate Decreased; Segmented Neutrophils 58 % (50-85); Smudge Cells Few; Total Cells Counted 100
[2020-05-27 07:06] LABS: Anisocytosis 1+; Polychromasia Slight
[2020-05-27] MEDS: DEXAMETHASONE 4 MG/1 ML VIAL IV SCH (09:33)
[2020-05-27] MEDS: ONDANSETRON 4 MG/2 ML VIAL IV PRN ×2 (09:38→18:25)
[2020-05-27] MEDS: LORazepam 2 MG/1 ML VIAL IV PRN (13:10)
[2020-05-27] MEDS: DOCUSATE SODIUM 100 MG CAPSULE PO SCH (18:10)
[2020-05-27] MEDS: MENTHOL/ZINC OXIDE OINT 71 GM JAR TOP SCH ×2 (18:11→20:55)
[2020-05-27] MEDS: MINERAL OIL/PETROLATUM OPH OINT 3.5 GM TUBE LEFT EYE SCH (20:55)
[2020-05-28] MEDS: LORazepam 2 MG/1 ML VIAL IV PRN (01:25)
[2020-05-28 04:26] LABS: Basophils # 0.1 10*3/uL (0.0-0.2); Hematocrit 36.5 VOL% (35.7-47.0); Immature Granulocytes % 9.9 %; Immature Granulocytes Absolute 0.57 #; Lymphocytes # 0.2 10*3/uL (1.4-4.0); Lymphocytes % 3.7 % (21.3-54.2); Mean Corpuscular HGB Conc 32.9 GM/DL (32-36); Mean Corpuscular Volume 87.7 FL (87-102); Mean Platelet Volume 9.9 FL (9.6-12.0); Monocytes % 5.1 % (1.7-12.7); NRBC # 0.04 10*3/uL; Neutrophils % 80.3 % (38.7-73.9); Red Blood Count 4.16 MC/CUMM (3.8-5.5); Red Cell Distribution Width 19.5 % (9.3-17.3)
[2020-05-28 04:27] LABS: Platelet Count 75 T/CUMM (130-400); White Blood Count 5.7 T/CUMM (4-12)
[2020-05-28 04:57] LABS: Band Neutrophils 4 % (0-10); Lymphocytes 2 % (20-55); Nucleated Red Blood Cells 2 (0-5); Platelet Estimate Decreased; Segmented Neutrophils 89 % (50-85); Total Cells Counted 100
[2020-05-28] MEDS: HYDROmorphone 2 MG/1 ML VIAL IV PRN ×2 (06:32→10:15)
[2020-05-28] MEDS: LEVALBUTEROL 1.25 MG/3 ML NEB RESP TX SCH (07:20)
[2020-05-28 08:07] VITALS: BP 103/58
[2020-05-28] MEDS: fentaNYL 50 MCG/HR PATCH TRANSDERM SCH (08:39)
[2020-05-28] MEDS: DOCUSATE SODIUM 100 MG CAPSULE PO SCH (08:41)
[2020-05-28] MEDS: DEXAMETHASONE 4 MG/1 ML VIAL IV SCH (08:42)
[2020-05-28] MEDS: MENTHOL/ZINC OXIDE OINT 71 GM JAR TOP SCH (08:43)
[2020-05-28] MEDS ORDERED: HEPARIN LOCK FLUSH 500 UNIT/5 ML SYRINGE IV ONE (09:40)
[2020-05-28] MEDS: ONDANSETRON 4 MG/2 ML VIAL IV PRN (10:15)
== END 2020-05-28 11:54 | disposition home health service (06) | DRG 54 ==
LOC: N.4E 16:40 → N.ED 16:40 → N.4E 22:23 → SUATTDRO 04-28 10:25
PROVIDERS: ADMIT Internal Medicine Geriatric Medicine; ATTEND Internal Medicine Geriatric Medicine

== ENCOUNTER 2020-05-30 13:24 | Inpatient (IN) ==
[2020-05-30] MEDS ORDERED: MORPHINE 4 MG/1 ML VIAL IV ONE (14:11)
[2020-05-30] MEDS ORDERED: ONDANSETRON 4 MG/2 ML VIAL IV STA (14:11)
[2020-05-30] MEDS ORDERED: SODIUM CHLORIDE 0.9% 1,000 ML IV STA (14:11)
[2020-05-30 15:28] LABS: Blood, Urine Negative (Negative); Glucose,Urine (UA) Negative (Negative); Ketones,Urine 5 mg/dL (Negative); Mucus,Urine Many /LPF (Occasional); Nitrite,Urine Negative (Negative); Protein,Urine 100 MG/DL; RBC,Urine 20 /HPF (0-4); Squamous Epithelial Cell,Urine Occasional /HPF (0-10); Urine Appearance CLOUDY (Clear); Urine Color Amber (Yellow); Urine Specific Gravity 1.033 (1.001-1.035); WBC,Urine 3 /HPF (0-6)
[2020-05-30 15:29] LABS: Bilirubin,Urine Moderate mg/dL (Negative)
[2020-05-30] MEDS ORDERED: PIPERACILLIN/TAZOBACTAM 3,375 MG in SODIUM CHLORIDE 0.9% 100 ML IV STA (15:56)
[2020-05-30 16:32] LABS: Basophils # 0.1 10*3/uL (0.0-0.2); Basophils % 1.3 % (0.0-0.8); Hematocrit 41.3 VOL% (35.7-47.0); Hemoglobin 13.7 GM/DL (12.0-16.0); Immature Granulocytes % 16.7 %; Immature Granulocytes Absolute 1.07 #; Lymphocytes # 0.2 10*3/uL (1.4-4.0); Lymphocytes % 3.3 % (21.3-54.2); Mean Corpuscular HGB Conc 33.2 GM/DL (32-36); Mean Corpuscular Volume 86.6 FL (87-102); Mean Platelet Volume 9.6 FL (9.6-12.0); Monocytes % 12.8 % (1.7-12.7); NRBC # 0.38 10*3/uL; Neutrophils % 65.9 % (38.7-73.9); Platelet Count 88 T/CUMM (130-400); Red Blood Count 4.77 MC/CUMM (3.8-5.5); White Blood Count 6.4 T/CUMM (4-12)
[2020-05-30 16:45] LABS: INR 1.5; PT Patient Result 16.2 SECS (9.8-11.9); Partial Thromboplastin Time 34.2 SECS (23.9-33.8)
[2020-05-30 16:48] LABS: Albumin 2.1 G/DL (3.4-5.0); Bilirubin,Total 2.3 MG/DL (0.2-1.0); Osmolality,Calculated 279.3 MOS/KG (273-304); Potassium 3.1 MMOL/L (3.5-5.1); Total Protein 4.6 G/DL (6.4-8.2)
[2020-05-30 16:49] LABS: Troponin I < 0.015 NG/ML (0.00-0.045)
[2020-05-30 17:37] LABS: Band Neutrophils 6 % (0-10); Lymphocytes 1 % (20-55); Nucleated Red Blood Cells 9 (0-5); Segmented Neutrophils 87 % (50-85); Total Cells Counted 100; Toxic Granulation 2+
[2020-05-30 17:38] LABS: Anisocytosis 1+; Macrocytosis Slight; Microcytosis 1+; Platelet Estimate Decreased; Polychromasia 1+
[2020-05-30] MEDS ORDERED: DEXTROSE 50% 25 GM/50 ML VIAL IV PRN (18:13)
[2020-05-30] MEDS ORDERED: ACETAMINOPHEN 325 MG TABLET PO PRN (18:13)
[2020-05-30] MEDS ORDERED: ONDANSETRON 4 MG/2 ML VIAL IV PRN (18:13)
[2020-05-30] MEDS ORDERED: GLUCAGON 1 MG VIAL IM PRN (18:13)
[2020-05-30] MEDS ORDERED: PROMETHAZINE 25 MG/1 ML VIAL IM PRN (18:13)
[2020-05-30] MEDS: HYDROmorphone 2 MG/1 ML VIAL IV PRN (21:49)
[2020-05-30] MEDS: DEXT 5% NACL 0.45% KCL 20 MEQ 20 MEQ/1,000 ML BAG IV SCH (21:50)
[2020-05-30] MEDS: ENOXAPARIN 120 MG/0.8 ML SYRINGE SUBCUT SCH (22:19)
[2020-05-30] MEDS: LORazepam 2 MG/1 ML VIAL IV PRN (22:19)
[2020-05-31 05:26] LABS: Basophils % 0.2 % (0.0-0.8); Hematocrit 38.6 VOL% (35.7-47.0); Hemoglobin 12.9 GM/DL (12.0-16.0); Immature Granulocytes % 21.6 %; Immature Granulocytes Absolute 1.18 #; Lymphocytes # 0.1 10*3/uL (1.4-4.0); Lymphocytes % 2.4 % (21.3-54.2); Mean Corpuscular HGB Conc 33.4 GM/DL (32-36); Mean Corpuscular Volume 86.5 FL (87-102); Mean Platelet Volume 9.9 FL (9.6-12.0); Monocytes % 19.2 % (1.7-12.7); NRBC # 0.54 10*3/uL; Neutrophils % 56.6 % (38.7-73.9); Platelet Count 82 T/CUMM (130-400); Red Blood Count 4.46 MC/CUMM (3.8-5.5); Red Cell Distribution Width 20.7 % (9.3-17.3); White Blood Count 5.5 T/CUMM (4-12)
[2020-05-31 05:41] LABS: Calcium 7.8 MG/DL (8.5-10.1); Osmolality,Calculated 279.4 MOS/KG (273-304)
[2020-05-31 06:05] LABS: Anisocytosis 2+; Band Neutrophils 4 % (0-10); Eosinophils 2 % (0-10); Hypochromasia 2+; Lymphocytes 5 % (20-55); Macrocytosis 2+; Metamyelocytes 6 %; Myelocytes 2 %; Nucleated Red Blood Cells 17 (0-5); Platelet Estimate Decreased; Polychromasia Few; Segmented Neutrophils 65 % (50-85); Total Cells Counted 100
[2020-05-31] MEDS: HYDROmorphone 2 MG/1 ML VIAL IV PRN ×2 (07:29→17:46)
[2020-05-31] MEDS: DEXT 5% NACL 0.45% KCL 20 MEQ 20 MEQ/1,000 ML BAG IV SCH (12:14)
[2020-05-31] MEDS: ENOXAPARIN 120 MG/0.8 ML SYRINGE SUBCUT SCH (21:21)
[2020-05-31] MEDS: LORazepam 2 MG/1 ML VIAL IV PRN (21:36)
[2020-06-01] MEDS: DEXT 5% NACL 0.45% KCL 20 MEQ 20 MEQ/1,000 ML BAG IV SCH ×2 (01:32→17:18)
[2020-06-01] MEDS: HYDROmorphone 2 MG/1 ML VIAL IV PRN ×3 (05:11→17:17)
[2020-06-01 05:55] LABS: Basophils % 0.3 % (0.0-0.8); Hematocrit 41.3 VOL% (35.7-47.0); Hemoglobin 13.3 GM/DL (12.0-16.0); Immature Granulocytes % 12.3 %; Immature Granulocytes Absolute 1.56 #; Lymphocytes # 0.9 10*3/uL (1.4-4.0); Lymphocytes % 6.8 % (21.3-54.2); Mean Corpuscular HGB Conc 32.2 GM/DL (32-36); Mean Corpuscular Volume 90.4 FL (87-102); Mean Platelet Volume 10.2 FL (9.6-12.0); Monocytes % 8.8 % (1.7-12.7); NRBC # 0.94 10*3/uL; Neutrophils % 71.8 % (38.7-73.9); Platelet Count 94 T/CUMM (130-400); Red Blood Count 4.57 MC/CUMM (3.8-5.5); Red Cell Distribution Width 22.3 % (9.3-17.3); White Blood Count 12.7 T/CUMM (4-12)
[2020-06-01 06:14] LABS: Bilirubin,Direct 1.2 MG/DL (0.0-0.20); Bilirubin,Total 3.2 MG/DL (0.2-1.0); Calcium 7.8 MG/DL (8.5-10.1); Osmolality,Calculated 279.4 MOS/KG (273-304); Potassium 3.6 MMOL/L (3.5-5.1); Total Protein 4.1 G/DL (6.4-8.2)
[2020-06-01 06:39] LABS: Band Neutrophils 3 % (0-10); Eosinophils 1 % (0-10); Lymphocytes 2 % (20-55); Metamyelocytes 1 %; Nucleated Red Blood Cells 12 (0-5); Segmented Neutrophils 88 % (50-85); Total Cells Counted 100
[2020-06-01 06:40] LABS: Hypochromasia 1+; Microcytosis 1+; Platelet Estimate Decreased; Polychromasia Few
[2020-06-01] MEDS ORDERED: MAGNESIUM SULF RIDER 2 GM in PREMIX 1 EACH IV PRN (07:45)
[2020-06-01] MEDS ORDERED: MAGNESIUM SULF RIDER 4 GM in PREMIX 1 EACH IV PRN (07:45)
[2020-06-01] MEDS: ENOXAPARIN 40 MG/0.4 ML SYRINGE SUBCUT SCH (21:10)
[2020-06-02 05:35] LABS: Basophils # 0.1 10*3/uL (0.0-0.2); Basophils % 0.7 % (0.0-0.8); Hematocrit 40.4 VOL% (35.7-47.0); Hemoglobin 12.8 GM/DL (12.0-16.0); Immature Granulocytes % 6.5 %; Immature Granulocytes Absolute 1.16 #; Lymphocytes # 1.2 10*3/uL (1.4-4.0); Lymphocytes % 6.4 % (21.3-54.2); Mean Corpuscular HGB Conc 31.7 GM/DL (32-36); Mean Corpuscular Volume 91.8 FL (87-102); Mean Platelet Volume 9.7 FL (9.6-12.0); Monocytes % 7.2 % (1.7-12.7); NRBC # 0.59 10*3/uL; Neutrophils % 79.2 % (38.7-73.9); Platelet Count 79 T/CUMM (130-400); Red Cell Distribution Width 23.2 % (9.3-17.3); White Blood Count 17.9 T/CUMM (4-12)
[2020-06-02 05:56] LABS: Calcium 7.5 MG/DL (8.5-10.1); Osmolality,Calculated 277.7 MOS/KG (273-304); Potassium 3.9 MMOL/L (3.5-5.1)
[2020-06-02 06:00] LABS: Albumin 1.8 G/DL (3.4-5.0); Bilirubin,Direct 1.44 MG/DL (0.0-0.20); Bilirubin,Indirect 1.5 MG/DL (0.0-1.0); Bilirubin,Total 2.9 MG/DL (0.2-1.0); Total Protein 3.9 G/DL (6.4-8.2)
[2020-06-02 06:09] LABS: Band Neutrophils 1 % (0-10); Lymphocytes 4 % (20-55); Nucleated Red Blood Cells 3 (0-5); Platelet Estimate Decreased; Segmented Neutrophils 90 % (50-85); Total Cells Counted 100
[2020-06-02 06:10] LABS: Polychromasia Few
[2020-06-02] MEDS: HYDROmorphone 2 MG/1 ML VIAL IV PRN ×3 (09:30→23:52)
[2020-06-02] MEDS: DEXT 5% NACL 0.45% KCL 20 MEQ 20 MEQ/1,000 ML BAG IV SCH ×2 (12:14→18:05)
[2020-06-02] MEDS: VANCOMYCIN INJ 1,500 MG in SODIUM CHLORIDE 0.9% 500 ML IV SCH (14:44)
[2020-06-02] MEDS: ENOXAPARIN 40 MG/0.4 ML SYRINGE SUBCUT SCH (20:28)
[2020-06-03] MEDS: VANCOMYCIN INJ 1,500 MG in SODIUM CHLORIDE 0.9% 500 ML IV SCH (02:42)
[2020-06-03] MEDS: HYDROmorphone 2 MG/1 ML VIAL IV PRN ×5 (05:04→19:05)
[2020-06-03 05:43] LABS: Basophils # 0.2 10*3/uL (0.0-0.2); Basophils % 0.7 % (0.0-0.8); Hematocrit 43.3 VOL% (35.7-47.0); Hemoglobin 13.6 GM/DL (12.0-16.0); Immature Granulocytes % 4.7 %; Immature Granulocytes Absolute 1.01 #; Lymphocytes # 1.1 10*3/uL (1.4-4.0); Lymphocytes % 4.9 % (21.3-54.2); Mean Corpuscular HGB Conc 31.4 GM/DL (32-36); Mean Corpuscular Volume 93.1 FL (87-102); Mean Platelet Volume 9.9 FL (9.6-12.0); Neutrophils % 77.7 % (38.7-73.9); Platelet Count 75 T/CUMM (130-400); Red Blood Count 4.65 MC/CUMM (3.8-5.5); Red Cell Distribution Width 23.9 % (9.3-17.3); White Blood Count 21.4 T/CUMM (4-12)
[2020-06-03 05:58] LABS: Calcium 7.5 MG/DL (8.5-10.1); Osmolality,Calculated 283.3 MOS/KG (273-304); Potassium 4.5 MMOL/L (3.5-5.1)
[2020-06-03 06:27] LABS: Band Neutrophils 1 % (0-10); Lymphocytes 3 % (20-55); Metamyelocytes 1 %; Myelocytes 1 %; Nucleated Red Blood Cells 5 (0-5); Segmented Neutrophils 87 % (50-85); Total Cells Counted 100
[2020-06-03 06:28] LABS: Macrocytosis 1+; Polychromasia Few
[2020-06-03 06:29] LABS: Anisocytosis 1+; Platelet Estimate Decreased
[2020-06-03] MEDS: DEXT 5% NACL 0.45% KCL 20 MEQ 20 MEQ/1,000 ML BAG IV SCH (10:15)
[2020-06-03 20:21] VITALS: BP 60/29
[2020-06-04] MEDS: LORazepam 2 MG/1 ML VIAL IV PRN ×4 (00:33→14:50)
[2020-06-04] MEDS ORDERED: SCOPOLAMINE 1.5 MG PATCH TRANSDERM SCH (09:00)
[2020-06-04] MEDS: HYDROmorphone 2 MG/1 ML VIAL IV PRN ×2 (11:28→16:02)
[2020-06-04] MEDS: DEXT 5% NACL 0.45% KCL 20 MEQ 20 MEQ/1,000 ML BAG IV SCH (14:52)
== END 2020-06-04 18:00 | disposition expired | DRG 388 ==
LOC: EDBD 13:24 → N.ED 13:24 → EDUNIT# 13:24 → N.EDINP 18:13 → N.4E 20:34
PROVIDERS: ADMIT Internal Medicine; ATTEND Internal Medicine